=== PATIENT | male | born 1990 ===

== ENCOUNTER 2021-05-20 01:18 | Day surgery (SDC) | payer OTHER ==
[~2021-05-20 01:18] MED LIST: CEFP200 PO; CEFU500T30 PO; CODACE30 PO; PROBIOTIC1 EA13 PO; SULTRIDS PO
== END 2021-05-20 23:07 | disposition home or self-care (01) ==
LOC: WOUND 01:18
DX: L89.013 Pressure ulcer of right elbow, stage 3 (principal); L89.893 Pressure ulcer of other site, stage 3; L89.523 Pressure ulcer of left ankle, stage 3; G82.54 Quadriplegia, C5-C7 incomplete; N39.0 Urinary tract infection, site not specified; Z86.718 Personal history of other venous thrombosis and embolism
CPT/HCPCS: A9270; G0463

== ENCOUNTER 2021-06-03 01:15 | Day surgery (SDC) | payer OTHER | END 2021-06-03 23:35 | disposition home or self-care (01) | LOC: WOUND 01:15 | DX: L89.013 Pressure ulcer of right elbow, stage 3 (principal); L89.893 Pressure ulcer of other site, stage 3; G82.54 Quadriplegia, C5-C7 incomplete | CPT/HCPCS: A9270; G0463 ==

== ENCOUNTER 2021-06-17 00:53 | Day surgery (SDC) | payer OTHER | END 2021-06-17 22:49 | disposition home or self-care (01) | LOC: WOUND 00:53 | DX: L89.013 Pressure ulcer of right elbow, stage 3 (principal); L89.893 Pressure ulcer of other site, stage 3; L89.523 Pressure ulcer of left ankle, stage 3; G82.54 Quadriplegia, C5-C7 incomplete; T22.211A Burn of second degree of right forearm, initial encounter; S91.105A Unspecified open wound of left lesser toe(s) without damage to nail, initial encounter; X08.8XXA Exposure to other specified smoke, fire and flames, initial encounter | CPT/HCPCS: G0463 ==

== ENCOUNTER → 2021-06-30 | Outpatient (CLI) | payer OTHER | END | disposition home or self-care (01) | LOC: LAB SHORT 16:00 → LAB 16:00 | DX: R50.9 Fever, unspecified (principal) | CPT/HCPCS: 87086 ==

== ENCOUNTER 2021-08-12 18:29 | Emergency (ER) | payer OTHER ==
[~2021-08-12] VITALS: Ht 167.6 cm; Wt 86.2 kg
[2021-08-12] MEDS ORDERED: MULVITA PO (19:45)
[2021-08-12] MEDS ORDERED: B-12500 MC2 PO (19:46)
[2021-08-12 20:50] LABS: Source, Urine Foley catheter
[2021-08-12 20:53] LABS: Bilirubin, Urine Neg (Neg); Blood, Urine 3+ (Neg); Glucose Qualitative, Urine Neg (Neg); Ketones, Urine Neg (Neg); Leukocyte Esterase, Urine 3+ (Neg); Nitrite, Urine Neg (Neg); Protein, Urine 3+ (Neg); Urobilinogen, Urine NORM (Normal)
[2021-08-12 21:03] LABS: Appearance, Urine Cloudy (Clear); Color, Urine Yellow (P-Yellow)
[2021-08-12 21:06] LABS: White Blood Cells, Urine TNTC /hpf (0-5)
[2021-08-12 21:07] LABS: Squamous Epithelial Cells Rare /hpf (Few)
[2021-08-12 21:09] LABS: Bacteria Many /hpf; Mucus Light (0-Heavy); Transitional Epithelial Cells Rare /hpf (0-Rare)
[2021-08-12] MEDS ORDERED: CIPR500 PO (21:28)
== END 2021-08-12 22:27 | disposition home or self-care (01) ==
LOC: ER 18:29
PROVIDERS: Physician Assistant
DX: T83.098A Other mechanical complication of other urinary catheter, initial encounter (principal); N39.0 Urinary tract infection, site not specified; M79.601 Pain in right arm; Z88.5 Allergy status to narcotic agent; Z79.899 Other long term (current) drug therapy
CPT/HCPCS: 51702; 81001; 87086; 99283-25; A9270

== ENCOUNTER 2021-10-19 11:35 | Inpatient (IN) | payer OTHER ==
[~2021-10-19] VITALS: Ht 172.7 cm; Wt 90.7 kg
[~2021-10-19 11:35] MED LIST changes: +B-12500 MC2 PO; +CIPR500 PO; +MULVITA PO
[2021-10-19 12:30] LABS: BASOPHILS ABSOLUTE AUTO 0.07 K/mm3 (0.00-0.23); BASOPHILS PERCENT AUTO 1 % (0-2); EOSINOPHILS ABSOLUTE AUTO 0.26 K/mm3 (0.00-0.68); EOSINOPHILS PERCENT AUTO 3 % (0-6); Hemoglobin 11.9 g/dL (13.5-17.5); IMMATURE GRAN ABSOLUTE AUTO 0.03 K/mm3 (0.00-0.10); IMMATURE GRAN PERCENT AUTO 0 % (0-1); LYMPHOCYTES ABSOLUTE AUTO 1.85 K/mm3 (0.84-5.20); LYMPHOCYTES PERCENT AUTO 20 % (21-46); MONOCYTES ABSOLUTE AUTO 0.98 K/mm3 (0.16-1.47); MONOCYTES PERCENT AUTO 11 % (4-13); Mean Corpuscular HGB 23.8 pg (26.0-34.0); Mean Corpuscular HGB Conc 31.3 g/dL (31.5-36.5); Mean Corpuscular Volume 76 fL (80-100); Mean Platelet Volume 9.3 fL (9.1-12.4); NEUTROPHILS ABSOLUTE AUTO 5.92 K/mm3 (1.96-9.15); NEUTROPHILS PERCENT AUTO 65 % (41-73); Platelet Count 497 K/mm3 (150-400); RDW Coefficient Variation 17.4 % (11.7-14.2); RDW Standard Deviation 47.8 fL (35.1-46.3); Red Blood Cell Count 5.01 M/mm3 (4.30-5.90); White Blood Cell Count 9.11 K/mm3 (4.00-11.30)
[2021-10-19 13:02] LABS: Albumin, Blood 3.6 g/dL (3.4-5.0); Albumin/Globulin Ratio 0.6 (0.8-1.8); Bilirubin, Total 0.3 mg/dL (0.1-1.0); Bun/Creatinine Ratio 45.5 (12.0-20.0); Calcium, Blood 9.7 mg/dL (8.5-10.1); Creatinine, Blood 0.48 mg/dL (0.60-1.20); Globulin, Blood 6.1 g/dL (2.2-4.0); Potassium, Blood 3.6 mmol/L (3.5-5.5); Total Protein, Blood 9.7 g/dL (6.4-8.2)
[2021-10-19 14:53] LABS: Source, Urine Foley catheter
[2021-10-19 15:13] LABS: Appearance, Urine Cloudy (Clear); Bilirubin, Urine Neg (Neg); Blood, Urine 4+ (Neg); Color, Urine Yellow (P-Yellow); Glucose Qualitative, Urine Neg (Neg); Ketones, Urine Neg (Neg); Leukocyte Esterase, Urine 3+ (Neg); Nitrite, Urine Neg (Neg); Protein, Urine 2+ (Neg); Urobilinogen, Urine NORM (Normal); pH, Urine 6.5 (5.0-8.0)
[2021-10-19 15:26] LABS: White Blood Cells, Urine 25-50 /hpf (0-5)
[2021-10-19 15:27] LABS: Amorphous Light (0-Heavy); Bacteria Many /hpf; Red Blood Cells, Urine 25-50 /hpf (0-2); Squamous Epithelial Cells Few /hpf (Few)
[2021-10-19 21:54] LABS: Source, Urine Straight Cath
[2021-10-19 22:03] LABS: Appearance, Urine Hazy (Clear); Bilirubin, Urine Neg (Neg); Blood, Urine 3+ (Neg); Glucose Qualitative, Urine Neg (Neg); Ketones, Urine 3+ (Neg); Leukocyte Esterase, Urine 2+ (Neg); Nitrite, Urine Pos (Neg); Protein, Urine 1+ (Neg); Specific Gravity, Urine 1.015 (1.003-1.022); Urobilinogen, Urine NORM (Normal)
[2021-10-19 22:42] LABS: Color, Urine Pale Yellow (P-Yellow)
[2021-10-19 22:44] LABS: Amorphous Light (0-Heavy); Bacteria Many /hpf; Squamous Epithelial Cells Not Seen /hpf (Few)
--- NOTE | 2021-10-20 05:03 | NUR ---
PT ADMIT THIS SHIFT FROM ER, PARAPLEGIC PERSONAL W/C IN ROOM. CHRONIC CANTU REPLACED AND U/A SENT. SEE CHART FOR MULTIPLE WOUND PHOTOS. 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 A/O, PLEASANT. TYLENOL GIVEN FOR DISCOMFORT AND FEVER LIKE SYMPTOMS, SWEATING HEAVILY, LINENS AND GOWN CHANGED. PT SAYS HE IS LIKE THIS NORMALLY AT HOME OFTEN.
[2021-10-20 05:19] LABS: Bun/Creatinine Ratio 33.1 (12.0-20.0); Creatinine, Blood 0.57 mg/dL (0.60-1.20); Potassium, Blood 4.2 mmol/L (3.5-5.5)
--- NOTE | 2021-10-20 17:49 | NUR ---
SHIFT SUMMARY PT REPOSITIONING SELF IN BED. PT COMPLETED CATH CARE INDEPENDENTLY. MOD ASSIST SLIDE TRANSFER TODAY TO HIS WHEELCHAIR AND THEN TO THE TOILET. PT TOLERATED THIS WELL. WOUND TO L POSTERIOR THIGH BANDAGED WITH A FOAM DRESSING. PT PLEASANT & COOPERATIVE T/O SHIFT. DENIES NEEDS AT THIS TIME. NO OTHER ACUTE CHANGES IN ASSESSMENT AT THIS TIME. CALL LIGHT IN REACH.
--- NOTE | 2021-10-21 03:43 | NUR ---
CLOUD ENGAGEMENT PARTNER SUMMARY AWAKE AT HS. TOLERATED HS MEDDS, REFUSED STOOL SOFTENERS. PT IS PARAPLEGIC, STATED HE HAS NO FEELING FORM "CHEST DOWN". ABLE TO USE BILAT UPPER EXT. ABLE TO REPOSITION SELF IN BED BUT REQUIRES ASSIST TO TRANSFER FROM BED TO W/C AND FROM W/C TO TOILET, ETC. HAS BEEN RESTING QUIETLY WITH FEW INTERUPTIONS SINCE HS. CALL LIGHT IN REACH. ISOLATION FOR ESBL/MRSA IN URINE.
[2021-10-21 06:22] LABS: Hematocrit 37.1 % (37.0-53.0); Hemoglobin 11.4 g/dL (13.5-17.5); Mean Corpuscular HGB 23.6 pg (26.0-34.0); Mean Corpuscular HGB Conc 30.7 g/dL (31.5-36.5); Mean Corpuscular Volume 77 fL (80-100); Mean Platelet Volume 9.1 fL (9.1-12.4); Platelet Count 471 K/mm3 (150-400); RDW Coefficient Variation 17.4 % (11.7-14.2); RDW Standard Deviation 48.2 fL (35.1-46.3); Red Blood Cell Count 4.84 M/mm3 (4.30-5.90); White Blood Cell Count 6.48 K/mm3 (4.00-11.30)
--- NOTE | 2021-10-21 06:28 | NUR ---
BP ELEVATED, NO ANTIHYPERTENSIVE ORDERED - CALL PLACED TO MD, AWAITING CALL BACK
[2021-10-21 06:47] LABS: Albumin, Blood 3.1 g/dL (3.4-5.0); Anion Gap 8 mmol/L (6-16); Blood Urea Nitrogen 18 mg/dL (8-24); Bun/Creatinine Ratio 34.3 (12.0-20.0); CO2, Blood 25 mmol/L (21-32); Calcium, Blood 8.9 mg/dL (8.5-10.1); Chloride, Blood 106 mmol/L (98-108); Creatinine, Blood 0.53 mg/dL (0.60-1.20); Glomerular Filtration Rate 139 (60-); Glucose, Blood 97 mg/dL (70-99); Phosphorus, Blood 3.1 mg/dL (2.5-4.9); Potassium, Blood 3.9 mmol/L (3.5-5.5); Sodium, Blood 139 mmol/L (136-145)
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
--- NOTE | 2021-10-22 05:16 | NUR ---
AT START OF SHIFT BP 164/103 HYDRALAZINE PRN X1 GIVEN WITH IMPROVEMENT TO 131/80. PT C/O THAT CANTU DOES NOT FEEL LIKE ITS PLACED IN THE "RIGHT PLACE." REPORTS FEELING PRESSURE AND THE URGE TO URINATE. PT HAS CHRONIC CANTU AND REPORTS HE HAS NEVER FELT LIKE THIS. PT ALSO STATING THAT HE TYPICCALLY USES A 16F CANTU NOT 14F. AT THIS TIME CANTU NOTED TO BE DRAINING TO GRAVITY W/O ISSUE. CNATU EXCHANGED PER PT REQUEST TO 16F COUDE AND WITH 15ML SALINE D/T PT STATING THAT THEY ALWAYS USE MORE THAN 10ML TO INFLATE BALLOON. AFTERWARDS PT REPORTED THAT HE NO LONGER FELT PRESSURE. PT ALSO WITH WOUNDS TO RIGHT TOES AND LEG. VERY HESITANT TO DRINK MATTHEW HOWEVER EDUCATED CONSTANTLY ON NEED TO COMPLY TO HELP WITH WOUND HEALING. PT ALSO ENCOURAGED TO CHANGE POSITION IN BED PT NOTED TO FREQUENTLY LAY IN THE SAME POSITION. PT WITH MINIMAL SLEEP LAST NIGHT. STILL REPORTS DISCOMFORT TO LUE.
[2021-10-22] MEDS ORDERED: JUVEN PACKET1 EAC3 PO (15:54)
[2021-10-22] MEDS ORDERED: DOCU100 PO (15:54)
[2021-10-22] MEDS ORDERED: IBUP400 PO (15:55)
[2021-10-22] MEDS ORDERED: LEVO750 PO (15:55)
[2021-10-22] MEDS ORDERED: VISBIOME 112.51 EACH PO (15:55)
--- NOTE | 2021-10-22 17:31 | NUR ---
DISCHARGE NOTE- PT WAS GIVEN VERBAL AND WRITTEN DISCHARGE INSTRUCTIONS AND MEDS WERE FAXED TO [facility] PER PT REQUEST. IV DC'D PRIOR TO DISCHARGE. PT WAS TAKEN VIA WC TRANSPORT BACK TO HIS HOME. NO S&S OF DISTRESS NOTED AT THE TIME OF DISCHARGE.
== END 2021-10-22 17:28 | disposition home health service (06) | DRG 698 ==
LOC: ER 11:35 → MEDS 21:00
PROVIDERS: Internal Medicine; Physician Assistant; ADMIT Internal Medicine
DX: T83.511A Infection and inflammatory reaction due to indwelling urethral catheter, initial encounter (principal); A41.81 Sepsis due to Enterococcus; G82.20 Paraplegia, unspecified; L03.116 Cellulitis of left lower limb; L97.129 Non-pressure chronic ulcer of left thigh with unspecified severity; L97.329 Non-pressure chronic ulcer of left ankle with unspecified severity; N39.0 Urinary tract infection, site not specified; M79.602 Pain in left arm; M81.0 Age-related osteoporosis without current pathological fracture; Z96.0 Presence of urogenital implants; Z79.899 Other long term (current) drug therapy; Z88.0 Allergy status to penicillin; Z88.5 Allergy status to narcotic agent; Z86.14 Personal history of Methicillin resistant Staphylococcus aureus infection; Z98.890 Other specified postprocedural states; Z86.19 Personal history of other infectious and parasitic diseases; Z99.3 Dependence on wheelchair; Z87.828 Personal history of other (healed) physical injury and trauma; Z88.8 Allergy status to other drugs, medicaments and biological substances
CPT/HCPCS: 36415; 71045; 74177; 80048; 80053; 80069; 81001; 83605; 83690; 85025; 85027; 87040; 87077; 87086; 87186; 96361; 96365-59; 96375; 96376; 97110; 97165; 99285-25; A9270; J0360; J1650; J2185; J2405; J2550; J7030; J7040; Q9967

== ENCOUNTER 2021-11-18 14:56 | Inpatient (IN) | payer OTHER ==
[~2021-11-18] VITALS: Ht 157.5 cm; Wt 88.5 kg
[~2021-11-18 14:56] MED LIST changes: +DOCU100 PO; +IBUP400 PO; +JUVEN PACKET1 EAC3 PO; +LEVO750 PO; +VISBIOME 112.51 EACH PO
[2021-11-18 16:22] LABS: BASOPHILS ABSOLUTE AUTO 0.08 K/mm3 (0.00-0.23); BASOPHILS PERCENT AUTO 1 % (0-2); EOSINOPHILS ABSOLUTE AUTO 0.15 K/mm3 (0.00-0.68); EOSINOPHILS PERCENT AUTO 1 % (0-6); Hematocrit 36.3 % (37.0-53.0); Hemoglobin 11.2 g/dL (13.5-17.5); IMMATURE GRAN ABSOLUTE AUTO 0.06 K/mm3 (0.00-0.10); IMMATURE GRAN PERCENT AUTO 0 % (0-1); LYMPHOCYTES ABSOLUTE AUTO 1.86 K/mm3 (0.84-5.20); LYMPHOCYTES PERCENT AUTO 12 % (21-46); MONOCYTES ABSOLUTE AUTO 1.22 K/mm3 (0.16-1.47); MONOCYTES PERCENT AUTO 8 % (4-13); Mean Corpuscular HGB 23.2 pg (26.0-34.0); Mean Corpuscular HGB Conc 30.9 g/dL (31.5-36.5); Mean Corpuscular Volume 75 fL (80-100); Mean Platelet Volume 9.3 fL (9.1-12.4); NEUTROPHILS ABSOLUTE AUTO 11.68 K/mm3 (1.96-9.15); NEUTROPHILS PERCENT AUTO 78 % (41-73); Platelet Count 504 K/mm3 (150-400); RDW Coefficient Variation 16.8 % (11.7-14.2); RDW Standard Deviation 45.5 fL (35.1-46.3); Red Blood Cell Count 4.82 M/mm3 (4.30-5.90); White Blood Cell Count 15.05 K/mm3 (4.00-11.30)
[2021-11-18 16:40] LABS: Albumin, Blood 3.2 g/dL (3.4-5.0); Albumin/Globulin Ratio 0.5 (0.8-1.8); Bilirubin, Total 0.7 mg/dL (0.1-1.0); Bun/Creatinine Ratio 20.6 (12.0-20.0); Calcium, Blood 9.4 mg/dL (8.5-10.1); Creatinine, Blood 0.53 mg/dL (0.60-1.20); Globulin, Blood 5.9 g/dL (2.2-4.0); Potassium, Blood 3.8 mmol/L (3.5-5.5); Total Protein, Blood 9.1 g/dL (6.4-8.2)
[2021-11-18 19:00] LABS: Source, Urine Clean Catch
[2021-11-18 19:16] LABS: Appearance, Urine Cloudy (Clear); Bilirubin, Urine Neg (Neg); Blood, Urine 5+ (Neg); Color, Urine Amber (P-Yellow); Glucose Qualitative, Urine Neg (Neg); Ketones, Urine 2+ (Neg); Leukocyte Esterase, Urine 3+ (Neg); Nitrite, Urine Neg (Neg); Protein, Urine 4+ (Neg); Urobilinogen, Urine 1+ (Normal)
[2021-11-18 19:23] LABS: Bacteria Mod /hpf; Hyaline Casts 0-2 /lpf (0-2); Mucus Mod (0-Heavy); Red Blood Cells, Urine TNTC /hpf (0-2); Squamous Epithelial Cells Rare /hpf (Few); WBC Cast 0-2 /lpf (0); White Blood Cells, Urine TNTC /hpf (0-5)
--- NOTE | 2021-11-19 04:28 | NUR ---
2305: PT ARRIVED TO ROOM 302. AOX4. TRANSFERED IN THE GURNEY TO BED WITH SLIDER SHEET. PT IS PARAPLEGIC. PT HAS MULTIPLE SKIN EXCORATION ON L UPPER BACK, POSTERIOR LLE (BEHIND L KNEE) AND L FOOT. PT HAD SOME SMALL LIQ STOOL, PT WAS CLEANED AND REPOSITIONED. DENIES PAIN. VSS. REORIENT IN ROOM. CALL LIGHT WITHIN REACH. WILL CONTINUE TO MONITOR.
--- NOTE | 2021-11-19 04:30 | NUR ---
SHIFT SUMMARY NO ACUTE CHANGES SINCE PT CAME IN FROM ER. PT AOX4. PLEASANT AND COOPERATIVE WITH CARE. VSS. DENIES PAIN AT THIS TIME. PARAPLEGIC. LIVES ALONE AT HOME, HAS CAREGIVER THAT COMES IN ONCE A WEEK AND A SISTER THAT HELPS. EXCORATED SKIN ON L SIDE BODY (BACK, LEG AND FOOT) SEE CHART FOR PICTURES. FLUIDS INFUSING X1 BAG FOR 150MLS/HR. ABX, MERREM GIVEN VIA IV AT 0200. TOLERATING PO INTAKE. DENIES N/V. SLEEP GOOD AFTER PT WAS TRANFERED FROM ER. CHRONIC CANTU WAS CHANGED AT ER. STILL INTACT, PATENT, OFF FLOOR AND GRAVITY. URINE APPEARS DARK AND HAVE SOME BLOOD. CALL LIGHT WITHIN REACH. WILL NOTIFY ONCOMING NURSE FOR REPORT.
--- NOTE | 2021-11-19 08:00 | NUR ---
pt laying in bed watching tv, a/ox3, pleasant and cooperative with care, follows commands well, denies pain, lungs are clear t/o, on r/a, resp even and unlabored, no cough noted, hrr, no edema noted, iv site is clear and patnent, btx4, abd flat soft nontender, voids via chronic sims cath, skin has multiple wounds, moves upper ext well, unable to move legs, donato, call light in reach.
[2021-11-19 09:07] LABS: BASOPHILS ABSOLUTE AUTO 0.05 K/mm3 (0.00-0.23); BASOPHILS PERCENT AUTO 1 % (0-2); EOSINOPHILS ABSOLUTE AUTO 0.47 K/mm3 (0.00-0.68); EOSINOPHILS PERCENT AUTO 7 % (0-6); Hematocrit 29.1 % (37.0-53.0); Hemoglobin 9.1 g/dL (13.5-17.5); IMMATURE GRAN ABSOLUTE AUTO 0.03 K/mm3 (0.00-0.10); IMMATURE GRAN PERCENT AUTO 0 % (0-1); LYMPHOCYTES ABSOLUTE AUTO 1.45 K/mm3 (0.84-5.20); LYMPHOCYTES PERCENT AUTO 21 % (21-46); MONOCYTES ABSOLUTE AUTO 0.49 K/mm3 (0.16-1.47); MONOCYTES PERCENT AUTO 7 % (4-13); Mean Corpuscular HGB 23.7 pg (26.0-34.0); Mean Corpuscular HGB Conc 31.3 g/dL (31.5-36.5); Mean Corpuscular Volume 76 fL (80-100); Mean Platelet Volume 9.1 fL (9.1-12.4); NEUTROPHILS ABSOLUTE AUTO 4.43 K/mm3 (1.96-9.15); NEUTROPHILS PERCENT AUTO 64 % (41-73); Platelet Count 380 K/mm3 (150-400); RDW Coefficient Variation 16.5 % (11.7-14.2); RDW Standard Deviation 46.1 fL (35.1-46.3); Red Blood Cell Count 3.84 M/mm3 (4.30-5.90); White Blood Cell Count 6.92 K/mm3 (4.00-11.30)
--- NOTE | 2021-11-19 17:35 | NUR ---
pt iv is stinging, charge is placing a new one, pt had a shower today, all wounds have mepilex placed on them, he is sweating. call light in reach.
--- NOTE | 2021-11-19 18:25 | NUR ---
pt lost his iv, as it was stinging, several attempts nurses looked to place new one, called charge for pcu she is placing one with u/s, pt having muscle spasms, call to Dr. Gloria lei order for flexeril. will give as soon as available, pt sweating a lot, no further changes this shift. call light in reach.
[2021-11-20 05:16] LABS: BASOPHILS ABSOLUTE AUTO 0.07 K/mm3 (0.00-0.23); BASOPHILS PERCENT AUTO 1 % (0-2); EOSINOPHILS ABSOLUTE AUTO 0.48 K/mm3 (0.00-0.68); EOSINOPHILS PERCENT AUTO 7 % (0-6); Hematocrit 29.3 % (37.0-53.0); Hemoglobin 9.2 g/dL (13.5-17.5); IMMATURE GRAN ABSOLUTE AUTO 0.04 K/mm3 (0.00-0.10); IMMATURE GRAN PERCENT AUTO 1 % (0-1); LYMPHOCYTES ABSOLUTE AUTO 1.83 K/mm3 (0.84-5.20); LYMPHOCYTES PERCENT AUTO 25 % (21-46); MONOCYTES ABSOLUTE AUTO 0.78 K/mm3 (0.16-1.47); MONOCYTES PERCENT AUTO 11 % (4-13); Mean Corpuscular HGB 23.5 pg (26.0-34.0); Mean Corpuscular HGB Conc 31.4 g/dL (31.5-36.5); Mean Corpuscular Volume 75 fL (80-100); Mean Platelet Volume 9.7 fL (9.1-12.4); NEUTROPHILS ABSOLUTE AUTO 4.01 K/mm3 (1.96-9.15); NEUTROPHILS PERCENT AUTO 56 % (41-73); Platelet Count 442 K/mm3 (150-400); RDW Coefficient Variation 16.6 % (11.7-14.2); Red Blood Cell Count 3.92 M/mm3 (4.30-5.90); White Blood Cell Count 7.21 K/mm3 (4.00-11.30)
--- NOTE | 2021-11-20 05:29 | NUR ---
ASSSUMED CARE OF PT AT 1900HRS. NO ACUTE CHANGES THIS SHIFT. PT IS A&OX4, ON BEDREST D/T PARAPLEGIA, AND CALL APPROPRIATELY. PLEASANT AND COOPERATIVE WITH CARES, SLEEPS 6 HOURS THIS NIGHT. HAS WOUNDS WITH FOAM DRESSINGS IN PLACE. DENIES PAIN. HAS CHRONIC CANTU. IS ABLE TO MOVE ARMS WELL, UNABLE TO MOVE LEGS. READJUSTED THROUGHOUT THE NIGHT. WILL CONTINUE TO MONITOR THIS PT AND GIVE REPORT TO DAY SHIFT RN.
[2021-11-20 05:48] LABS: Bun/Creatinine Ratio 19.5 (12.0-20.0); Calcium, Blood 8.5 mg/dL (8.5-10.1); Creatinine, Blood 0.51 mg/dL (0.60-1.20); Potassium, Blood 3.3 mmol/L (3.5-5.5)
--- NOTE | 2021-11-20 18:02 | NUR ---
SHIFT SUMMARY PT RESTING QUIETLY AT START OF SHIFT. WOKE EASILY FOR CARE. PT RECEIVING IV ABX FOR UTI R/T CHRONIC CANTU. PT WILL NEED TO D/C TO SNF FOR 14 DAYS OF ABX AND THEN F/U WITH WOUND CLINIC FOR L LEG WOUNDS. PT IS PARAPLEGIC AND SITS IN W/C FOR LONG HOURS HE SAID, CAUSING WOUNDS ON LEGS. A&O, PLEASANT AND CO-OP WITH CARE. TEXT ON PHONE MOST OF THE DAY, WATCHING TV. DENIED FURTHER NEEDS. CALL LT IN REACH.
--- NOTE | 2021-11-21 04:43 | NUR ---
SHIFT SUMMARY - PT'S MAIN COMPLAINT AT THE BEGINNING OF THIS SHIFT, WAS LACK OF SLEEP. PT REPORTS HE WAS ABLE TO GET "INTERMITTENT PERIODS OF SLEEP THROUGHOUT THE NIGHT." NO ACUTE CHANGES THROUGHOUT THIS SHIFT. PT DENIED ANY CHEST PAIN, SOB, NAUSEA, OR HEADACHE TONIGHT. CALL LIGHT WITHIN REACH. BED IN LOW POSITION. FLUIDS AT BEDSIDE. WILL CONTINUE TO MONITOR UNTIL AM SHIFT CHANGE. PT DENIES ANY REQUESTS THIS AM.
--- NOTE | 2021-11-21 16:52 | NUR ---
DAY SHIFT SUMMARY 31 YR OLD MALE WITH SEPSIS. PLAN TO FIND PLACEMENT FOR PT TO RECEIVE IV ABX. POWER GLIDE PLACED FOR EXTENDED ABX. PT IS ON RA AND ABLE TO TAKE MEDS WHOLE. WOUND CONSULT ORDERED FOR WOUNDS TO BACK, BACK OF LT LEG AND RT ANKLE/FOOT FROM WHEELCHAIR USE. PT IS PARALYZED FROM CHEST DOWN. CALL LIGHT WITHIN REACH AND ABLE TO CALL APPROPRIATE.
--- NOTE | 2021-11-22 04:04 | NUR ---
SHIFT SUMMARY A/OX4, W/C BOUND AT BASELINE. CHRONIC INDWELLING CANTU PATENT AND DRAINING. DENIES PAIN OR SOB. SLEPT T/O SHIFT. PG TO BLAYNE. VSS, NO ACUTE CHANGES AT THIS TIME. BED IN LOWEST POSITION WITH CALL LIGHT IN REACH. WILL CONTINUE TO MONITOR AND REPORT TO ONCOMING RN.
[2021-11-22 05:43] LABS: Bun/Creatinine Ratio 21.7 (12.0-20.0); Calcium, Blood 8.8 mg/dL (8.5-10.1); Creatinine, Blood 0.55 mg/dL (0.60-1.20); Potassium, Blood 4.1 mmol/L (3.5-5.5)
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
--- NOTE | 2021-11-23 04:54 | NUR ---
SHIFT SUMMARY A/OX4, W/C BOUND AT BASELINE. SEVERAL ULCERS/CELLULITIS, DRESSINGS C/D/I. PG TO BLAYNE. VSS, NO ACUTE CHANGES AT THIS TIME. BED IN LOWEST POSITION WITH CALL LIGHT IN REACH. WILL CONTINUE TO MONITOR AND REPORT TO ONCOMING RN.
--- NOTE | 2021-11-24 05:25 | NUR ---
SHIFT SUMMARY A/OX4, PARAPLEGIC, W/C BOUND AT BASELINE. C/O GENERALIZED PAIN, MEDICATED WITH OT ORDER OF NORCO. PG TO BLAYNE. VSS, NO ACUTE CHANGES AT THIS TIME. BED IN LOWEST POSITION WITH CALL LIGHT IN REACH. WILL CONTINUE TO MONITOR AND REPORT TO ONCOMING RN.
[2021-11-24] MEDS ORDERED: ACET325 PO (10:56)
[2021-11-24] MEDS ORDERED: BACLOFEN5 M1 PO (10:56)
[2021-11-24] MEDS ORDERED: ASCO500 PO (10:56)
[2021-11-24] MEDS ORDERED: XARELTO2.5 M1 PO (10:57)
[2021-11-24] MEDS ORDERED: FERSU300 PO (10:57)
[2021-11-24] MEDS ORDERED: MERREM1 G3 IV (10:57)
[2021-11-24] MEDS ORDERED: PROM25 PO (10:58)
[2021-11-24 12:36] LABS: SARS-Cov-2 (COVID-19) PCR, MMC NEGATIVE (NEGATIVE)
--- NOTE | 2021-11-24 15:20 | NUR ---
DISCHARGE PATIENT TRANSPORTED IN OWN WHEELCHAIR BY [facility]. DISCHARGE INSTRUCTIONS FAXED TO [facility]. POWERGLIDE TO BLAYNE INTACT AND PATENT AT TIME OF DISCHARGE. DRESSING CHANGED TODAY. BELONGINGS SENT WITH PATIENT. MEDICATIONS FAXED TO [facility]. CANTU PATENT AND DRAINING AT TIME OF DISCHARGE. REPORT GIVEN TO BUSTER CARVALHO NURSE AT [facility].
== END 2021-11-24 15:04 | DRG 698 ==
LOC: ER 14:56 → MEDS 22:37
PROVIDERS: Family Medicine; Internal Medicine; Physician Assistant; ADMIT Internal Medicine
DX: T83.511A Infection and inflammatory reaction due to indwelling urethral catheter, initial encounter (principal); A41.59 Other Gram-negative sepsis; G82.50 Quadriplegia, unspecified; L03.115 Cellulitis of right lower limb; L03.116 Cellulitis of left lower limb; Z16.12 Extended spectrum beta lactamase (ESBL) resistance; N39.0 Urinary tract infection, site not specified; M81.0 Age-related osteoporosis without current pathological fracture; L89.899 Pressure ulcer of other site, unspecified stage; Z20.822 Contact with and (suspected) exposure to COVID-19; Z88.8 Allergy status to other drugs, medicaments and biological substances; Z87.828 Personal history of other (healed) physical injury and trauma; Z88.5 Allergy status to narcotic agent; Z88.0 Allergy status to penicillin; Z79.899 Other long term (current) drug therapy; Z79.2 Long term (current) use of antibiotics; Z98.890 Other specified postprocedural states; Z86.14 Personal history of Methicillin resistant Staphylococcus aureus infection; Z99.3 Dependence on wheelchair
CPT/HCPCS: 36415; 71045; 73701; 80048; 80053; 81001; 82728; 83540; 83550; 83605; 85025; 87040; 87077; 87086; 87186; 93005; 93010; 96365-59; 96366; 96367; 96375; 99285-25; A9270; J0780; J1335; J1650; J1885; J1956; J2185; J2405; J3370; J7030; J7040; J7050; J7060; Q9967; U0004

== ENCOUNTER 2021-12-14 00:29 | Day surgery (SDC) | payer OTHER ==
[~2021-12-14 00:29] MED LIST changes: +ACET325 PO; +ASCO500 PO; +BACLOFEN5 M1 PO; +FERSU300 PO; +MERREM1 G3 IV; +PROM25 PO; +XARELTO2.5 M1 PO
== END 2021-12-15 00:46 | disposition home or self-care (01) ==
LOC: WOUND 00:29
DX: L89.523 Pressure ulcer of left ankle, stage 3 (principal); L89.893 Pressure ulcer of other site, stage 3; L89.890 Pressure ulcer of other site, unstageable; L97.528 Non-pressure chronic ulcer of other part of left foot with other specified severity; G82.54 Quadriplegia, C5-C7 incomplete; Z86.718 Personal history of other venous thrombosis and embolism; Z88.5 Allergy status to narcotic agent; Z88.1 Allergy status to other antibiotic agents; Z88.4 Allergy status to anesthetic agent; Z88.8 Allergy status to other drugs, medicaments and biological substances
CPT/HCPCS: A9270; G0463

== ENCOUNTER 2021-12-21 01:28 | Day surgery (SDC) | payer OTHER | END 2021-12-21 23:17 | disposition home or self-care (01) | LOC: WOUND 01:28 | DX: L89.523 Pressure ulcer of left ankle, stage 3 (principal); L89.893 Pressure ulcer of other site, stage 3; L97.528 Non-pressure chronic ulcer of other part of left foot with other specified severity; G82.54 Quadriplegia, C5-C7 incomplete | CPT/HCPCS: G0463 ==

== ENCOUNTER 2022-01-08 00:14 | Day surgery (SDC) | payer OTHER | END 2022-01-08 23:24 | disposition home or self-care (01) | LOC: WOUND 00:14 | DX: L89.523 Pressure ulcer of left ankle, stage 3 (principal); L89.893 Pressure ulcer of other site, stage 3; L97.523 Non-pressure chronic ulcer of other part of left foot with necrosis of muscle; G82.54 Quadriplegia, C5-C7 incomplete | CPT/HCPCS: A9270; G0463 ==

== ENCOUNTER 2022-01-25 01:44 | Day surgery (SDC) | payer OTHER | END 2022-01-25 22:56 | disposition home or self-care (01) | LOC: WOUND 01:44 | DX: L89.893 Pressure ulcer of other site, stage 3 (principal); N39.0 Urinary tract infection, site not specified; L97.528 Non-pressure chronic ulcer of other part of left foot with other specified severity; G82.54 Quadriplegia, C5-C7 incomplete; L89.523 Pressure ulcer of left ankle, stage 3 | CPT/HCPCS: A9270; G0463 ==

== ENCOUNTER 2022-01-25 14:24 | Emergency (ER) | payer OTHER ==
[~2022-01-25] VITALS: Ht 165.1 cm; Wt 90.7 kg
[2022-01-25 18:49] LABS: Source, Urine Foley catheter
[2022-01-25 19:09] LABS: Appearance, Urine Hazy (Clear); Bilirubin, Urine Neg (Neg); Blood, Urine 5+ (Neg); Color, Urine Yellow (P-Yellow); Glucose Qualitative, Urine Neg (Neg); Ketones, Urine Neg (Neg); Leukocyte Esterase, Urine 3+ (Neg); Nitrite, Urine Pos (Neg); Protein, Urine 2+ (Neg); Urobilinogen, Urine 1+ (Normal)
[2022-01-25 19:28] LABS: White Blood Cells, Urine 50-100 /hpf (0-5)
[2022-01-25 19:29] LABS: Bacteria Many /hpf; Red Blood Cells, Urine 25-50 /hpf (0-2); Squamous Epithelial Cells Few /hpf (Few)
== END 2022-01-25 21:15 | disposition home or self-care (01) ==
LOC: ER 14:24
PROVIDERS: Physician Assistant
DX: T83.098A Other mechanical complication of other urinary catheter, initial encounter (principal); N39.0 Urinary tract infection, site not specified; Z88.8 Allergy status to other drugs, medicaments and biological substances; Z88.5 Allergy status to narcotic agent; Z88.1 Allergy status to other antibiotic agents; Z79.899 Other long term (current) drug therapy
CPT/HCPCS: 51702; 81001; 87077; 87086; 87186; 99283-25; A9270

== ENCOUNTER 2022-03-05 00:43 | Day surgery (SDC) | payer OTHER | END 2022-03-05 23:23 | disposition home or self-care (01) | LOC: WOUND 00:43 | DX: L89.893 Pressure ulcer of other site, stage 3 (principal); L89.523 Pressure ulcer of left ankle, stage 3; L89.892 Pressure ulcer of other site, stage 2; L89.323 Pressure ulcer of left buttock, stage 3; L89.313 Pressure ulcer of right buttock, stage 3; G82.54 Quadriplegia, C5-C7 incomplete; L97.528 Non-pressure chronic ulcer of other part of left foot with other specified severity | CPT/HCPCS: A9270; G0463 ==

== ENCOUNTER 2022-03-12 00:38 | Day surgery (SDC) | payer OTHER | END 2022-03-12 22:51 | disposition home or self-care (01) | LOC: WOUND 00:38 | DX: L89.893 Pressure ulcer of other site, stage 3 (principal); L89.523 Pressure ulcer of left ankle, stage 3; L89.323 Pressure ulcer of left buttock, stage 3; L89.313 Pressure ulcer of right buttock, stage 3; L89.102 Pressure ulcer of unspecified part of back, stage 2; G82.54 Quadriplegia, C5-C7 incomplete; L97.528 Non-pressure chronic ulcer of other part of left foot with other specified severity; Z86.718 Personal history of other venous thrombosis and embolism | CPT/HCPCS: A9270; G0463 ==

== ENCOUNTER 2022-03-24 14:58 | Emergency (ER) | payer OTHER ==
[~2022-03-24] VITALS: Ht 170.2 cm; Wt 90.7 kg
[2022-03-24 19:04] LABS: Source, Urine Foley catheter
[2022-03-24 19:12] LABS: Appearance, Urine Cloudy (Clear); Bilirubin, Urine Neg (Neg); Blood, Urine 3+ (Neg); Color, Urine Yellow (P-Yellow); Glucose Qualitative, Urine Neg (Neg); Ketones, Urine Neg (Neg); Leukocyte Esterase, Urine 3+ (Neg); Nitrite, Urine Pos (Neg); Protein, Urine 2+ (Neg); Specific Gravity, Urine 1.015 (1.003-1.022); Urobilinogen, Urine NORM (Normal)
[2022-03-24 19:21] LABS: White Blood Cells, Urine TNTC /hpf (0-5)
[2022-03-24 19:22] LABS: Bacteria Many /hpf; Squamous Epithelial Cells Rare /hpf (Few)
[2022-03-24 19:23] LABS: Renal Epithelial Mod /hpf (0-Rare)
[2022-03-24] MEDS ORDERED: CIPR500 PO (19:48)
== END 2022-03-24 20:26 | disposition home or self-care (01) ==
LOC: ER 14:58
PROVIDERS: Emergency Medicine
DX: Z46.6 Encounter for fitting and adjustment of urinary device (principal); N39.0 Urinary tract infection, site not specified
CPT/HCPCS: 51702; 81001; A9270

== ENCOUNTER 2022-03-26 02:13 | Day surgery (SDC) | payer OTHER | END 2022-03-26 22:57 | disposition home or self-care (01) | LOC: WOUND 02:13 | DX: L89.893 Pressure ulcer of other site, stage 3 (principal); L89.102 Pressure ulcer of unspecified part of back, stage 2; L89.323 Pressure ulcer of left buttock, stage 3; L89.523 Pressure ulcer of left ankle, stage 3; G82.54 Quadriplegia, C5-C7 incomplete; L89.313 Pressure ulcer of right buttock, stage 3 | CPT/HCPCS: A9270; G0463 ==

== ENCOUNTER 2022-04-02 00:43 | Day surgery (SDC) | payer OTHER | END 2022-04-02 23:09 | disposition home or self-care (01) | LOC: WOUND 00:43 | DX: L89.893 Pressure ulcer of other site, stage 3 (principal); L89.523 Pressure ulcer of left ankle, stage 3; L89.323 Pressure ulcer of left buttock, stage 3; L89.313 Pressure ulcer of right buttock, stage 3; G82.54 Quadriplegia, C5-C7 incomplete; L97.528 Non-pressure chronic ulcer of other part of left foot with other specified severity; L89.102 Pressure ulcer of unspecified part of back, stage 2 | CPT/HCPCS: A9270; G0463 ==

== ENCOUNTER 2022-04-16 01:42 | Day surgery (SDC) | payer OTHER | END 2022-04-17 23:34 | disposition home or self-care (01) | LOC: WOUND 01:42 | DX: L89.893 Pressure ulcer of other site, stage 3 (principal); L89.102 Pressure ulcer of unspecified part of back, stage 2; L89.323 Pressure ulcer of left buttock, stage 3; L89.313 Pressure ulcer of right buttock, stage 3; G82.54 Quadriplegia, C5-C7 incomplete; L89.523 Pressure ulcer of left ankle, stage 3 | CPT/HCPCS: A9270; G0463 ==

== ENCOUNTER → 2022-06-09 | Outpatient (CLI) | payer OTHER ==
[2022-06-09 14:48] LABS: Source, Urine Straight Cath
[2022-06-09 16:27] LABS: Appearance, Urine Cloudy (Clear); Bilirubin, Urine Neg (Neg); Blood, Urine 5+ (Neg); Color, Urine Yellow (P-Yellow); Glucose Qualitative, Urine Neg (Neg); Ketones, Urine Neg (Neg); Leukocyte Esterase, Urine 3+ (Neg); Nitrite, Urine Neg (Neg); Protein, Urine 3+ (Neg); Specific Gravity, Urine 1.015 (1.003-1.022); Urobilinogen, Urine NORM (Normal)
[2022-06-09 16:51] LABS: Calcium Oxalate Crystals Many /hpf; Red Blood Cells, Urine 50-100 /hpf (0-2); White Blood Cells, Urine 25-50 /hpf (0-5)
[2022-06-09 16:53] LABS: Bacteria Few /hpf; Squamous Epithelial Cells Not Seen /hpf (Few)
== END ==
LOC: EDSTATUS 09:53 → LAB RH 13:45
PROVIDERS: Internal Medicine
DX: N39.0 Urinary tract infection, site not specified (principal)
CPT/HCPCS: 81001; 87077; 87086; 87186

== ENCOUNTER → 2022-07-03 | Outpatient (CLI) | payer OTHER ==
[2022-07-03 22:59] LABS: Hematocrit 34.1 % (37.0-53.0); Hemoglobin 10.6 g/dL (13.5-17.5); Mean Corpuscular HGB 23.4 pg (26.0-34.0); Mean Corpuscular HGB Conc 31.1 g/dL (31.5-36.5); Mean Corpuscular Volume 75 fL (80-100); Mean Platelet Volume 10.5 fL (9.1-12.4); Platelet Count 504 K/mm3 (150-400); RDW Coefficient Variation 18.7 % (11.7-14.2); RDW Standard Deviation 50.9 fL (35.1-46.3); Red Blood Cell Count 4.53 M/mm3 (4.30-5.90); White Blood Cell Count 6.23 K/mm3 (4.00-11.30)
[2022-07-03 23:27] LABS: Albumin, Blood 3.2 g/dL (3.4-5.0); Albumin/Globulin Ratio 0.6 (0.8-1.8); Bilirubin, Total 0.1 mg/dL (0.1-1.0); Bun/Creatinine Ratio 31.8 (12.0-20.0); Calcium, Blood 8.2 mg/dL (8.5-10.1); Creatinine, Blood 0.57 mg/dL (0.60-1.20); Globulin, Blood 5.4 g/dL (2.2-4.0); Potassium, Blood 3.2 mmol/L (3.5-5.5); Total Protein, Blood 8.6 g/dL (6.4-8.2)
== END | disposition home or self-care (01) ==
LOC: EDSTATUS 15:03 → LAB RH 22:54
PROVIDERS: Internal Medicine
DX: G82.20 Paraplegia, unspecified (principal); L03.90 Cellulitis, unspecified
CPT/HCPCS: 80053; 85027

== ENCOUNTER → 2022-07-08 | Outpatient (CLI) | payer OTHER ==
[2022-07-08 13:07] LABS: Albumin, Blood 3.6 g/dL (3.4-5.0); Albumin/Globulin Ratio 0.6 (0.8-1.8); Bilirubin, Total 0.4 mg/dL (0.1-1.0); Bun/Creatinine Ratio 35.1 (12.0-20.0); Calcium, Blood 9.2 mg/dL (8.5-10.1); Creatinine, Blood 0.54 mg/dL (0.60-1.20); Globulin, Blood 5.9 g/dL (2.2-4.0); Potassium, Blood 3.9 mmol/L (3.5-5.5); Total Protein, Blood 9.5 g/dL (6.4-8.2)
== END | disposition home or self-care (01) ==
LOC: LAB RH 10:35 → EDSTATUS 15:04
PROVIDERS: Internal Medicine
DX: E87.6 Hypokalemia (principal)
CPT/HCPCS: 80053

== ENCOUNTER → 2022-07-16 | Outpatient (CLI) | payer OTHER ==
[2022-07-16 22:06] LABS: Source, Urine Clean Catch
[2022-07-16 22:09] LABS: Appearance, Urine Clear (Clear); Bilirubin, Urine Neg (Neg); Blood, Urine 3+ (Neg); Color, Urine Yellow (P-Yellow); Glucose Qualitative, Urine Neg (Neg); Ketones, Urine Neg (Neg); Leukocyte Esterase, Urine 1+ (Neg); Nitrite, Urine Pos (Neg); Protein, Urine 2+ (Neg); Specific Gravity, Urine 1.015 (1.003-1.022); Urobilinogen, Urine NORM (Normal)
[2022-07-16 22:15] LABS: Bacteria Many /hpf; Red Blood Cells, Urine 0-2 /hpf (0-2); Squamous Epithelial Cells Not Seen /hpf (Few)
[2022-07-16 22:16] LABS: Amorphous Light (0-Heavy)
== END | disposition home or self-care (01) ==
LOC: LAB SHORT 22:03
PROVIDERS: Internal Medicine
DX: N39.0 Urinary tract infection, site not specified (principal); N31.8 Other neuromuscular dysfunction of bladder; L03.90 Cellulitis, unspecified
CPT/HCPCS: 81001; 87077; 87086; 87186

== ENCOUNTER → 2022-10-05 | Outpatient (CLI) | payer OTHER | END | disposition home or self-care (01) | LOC: LAB 18:00 → LAB SHORT 18:00 | DX: N39.0 Urinary tract infection, site not specified (principal) | CPT/HCPCS: 87086 ==

== ENCOUNTER → 2022-12-07 | Outpatient (CLI) | payer OTHER | END | disposition home or self-care (01) | LOC: LAB 18:00 → LAB SHORT 18:00 | DX: N39.0 Urinary tract infection, site not specified (principal) | CPT/HCPCS: 87077; 87086; 87186 ==

== ENCOUNTER 2023-02-03 18:57 | Emergency (ER) | payer OTHER ==
[~2023-02-03] VITALS: Ht 165.1 cm; Wt 81.7 kg
[2023-02-03 20:36] VITALS: BP 103/60
[2023-02-03] MEDS ORDERED: MELA3 PO (20:38)
[2023-02-03] MEDS ORDERED: MULVITA PO (20:38)
[2023-02-04 00:43] LABS: Source, Urine Foley catheter
[2023-02-04 01:01] LABS: Bilirubin, Urine Neg (Neg); Blood, Urine 4+ (Neg); Glucose Qualitative, Urine Neg (Neg); Ketones, Urine Neg (Neg); Leukocyte Esterase, Urine 3+ (Neg); Nitrite, Urine Pos (Neg); Protein, Urine 3+ (Neg); Urobilinogen, Urine NORM (Normal)
[2023-02-04 01:10] LABS: Appearance, Urine Turbid (Clear); Color, Urine Yellow (P-Yellow)
[2023-02-04 01:11] LABS: Bacteria Many /hpf; Squamous Epithelial Cells Mod /hpf (Few); White Blood Cells, Urine TNTC /hpf (0-5)
[2023-02-04] MEDS ORDERED: LEVO750 PO (01:13)
== END 2023-02-04 02:21 | disposition home or self-care (01) ==
LOC: ER 18:57
PROVIDERS: Physician Assistant
DX: N39.0 Urinary tract infection, site not specified (principal); Z88.5 Allergy status to narcotic agent; Z88.6 Allergy status to analgesic agent; Z79.899 Other long term (current) drug therapy
CPT/HCPCS: 51702; 81001; 87077; 87086; 87186; 99283-25; A9270

== ENCOUNTER → 2023-03-08 | Outpatient (CLI) | payer OTHER ==
[~2023-03-08] MED LIST changes: +MELA3 PO
== END ==
LOC: LAB SHORT 17:39 → LAB 17:39
DX: R82.90 Unspecified abnormal findings in urine (principal)
CPT/HCPCS: 87070; 87077; 87086; 87147; 87186; 87205

== ENCOUNTER 2023-03-16 17:06 | Inpatient (IN) | payer OTHER ==
[~2023-03-16] VITALS: Ht 162.6 cm; Wt 93.4 kg
[2023-03-16 21:52] LABS: Source, Urine Foley catheter
[2023-03-16 22:07] LABS: Bilirubin, Urine Neg (Neg); Blood, Urine 5+ (Neg); Glucose Qualitative, Urine Neg (Neg); Ketones, Urine Neg (Neg); Leukocyte Esterase, Urine 2+ (Neg); Nitrite, Urine Neg (Neg); Protein, Urine 3+ (Neg); Specific Gravity, Urine 1.025 (1.003-1.022); Urobilinogen, Urine NORM (Normal)
[2023-03-16 22:17] LABS: Color, Urine Yellow (P-Yellow)
[2023-03-16 22:18] LABS: Appearance, Urine Hazy (Clear); Bacteria Few /hpf; Red Blood Cells, Urine 50-100 /hpf (0-2); Squamous Epithelial Cells Few /hpf (Few)
[2023-03-16 23:42] LABS: BASOPHILS ABSOLUTE AUTO 0.05 K/mm3 (0.00-0.23); BASOPHILS PERCENT AUTO 1 % (0-2); EOSINOPHILS ABSOLUTE AUTO 0.16 K/mm3 (0.00-0.68); EOSINOPHILS PERCENT AUTO 2 % (0-6); Hematocrit 35.4 % (37.0-53.0); Hemoglobin 11.9 g/dL (13.5-17.5); IMMATURE GRAN ABSOLUTE AUTO 0.06 K/mm3 (0.00-0.10); IMMATURE GRAN PERCENT AUTO 1 % (0-1); LYMPHOCYTES PERCENT AUTO 26 % (21-46); MONOCYTES ABSOLUTE AUTO 1.06 K/mm3 (0.16-1.47); MONOCYTES PERCENT AUTO 11 % (4-13); Mean Corpuscular HGB 28.8 pg (26.0-34.0); Mean Corpuscular HGB Conc 33.6 g/dL (31.5-36.5); Mean Corpuscular Volume 86 fL (80-100); Mean Platelet Volume 9.3 fL (9.1-12.4); NEUTROPHILS ABSOLUTE AUTO 6.17 K/mm3 (1.96-9.15); NEUTROPHILS PERCENT AUTO 61 % (41-73); Platelet Count 588 K/mm3 (150-400); RDW Coefficient Variation 13.4 % (11.7-14.2); RDW Standard Deviation 42.6 fL (35.1-46.3); Red Blood Cell Count 4.13 M/mm3 (4.30-5.90)
[2023-03-17 00:03] LABS: Magnesium, Blood 1.9 mg/dL (1.6-2.4)
[2023-03-17 00:06] LABS: Albumin, Blood 2.8 g/dL (3.4-5.0); Albumin/Globulin Ratio 0.5 (0.8-1.8); Bilirubin, Total 0.2 mg/dL (0.1-1.0); Calcium, Blood 8.8 mg/dL (8.5-10.1); Creatinine, Blood 0.59 mg/dL (0.60-1.20); Globulin, Blood 6.1 g/dL (2.2-4.0); Phosphorus, Blood 3.3 mg/dL (2.5-4.9); Potassium, Blood 3.7 mmol/L (3.5-5.5); Thyroid Stimulating Hormone 0.894 uIU/mL (0.360-4.800); Total Protein, Blood 8.9 g/dL (6.4-8.2)
[2023-03-17 03:59] VITALS: BP 128/82
[2023-03-17] MEDS ORDERED: JUVEN PACKET1 EAC3 PO (04:32)
[2023-03-17] MEDS ORDERED: ASCO500 PO (04:32)
[2023-03-17] MEDS ORDERED: FERSU300 PO (04:33)
[2023-03-17] MEDS ORDERED: BACLOFEN5 M1 PO (04:33)
[2023-03-17] MEDS ORDERED: DOCU100 PO (04:33)
[2023-03-17] MEDS ORDERED: XARELTO20 MG PO (04:34)
[2023-03-17] MEDS ORDERED: PROM25 PO (04:34)
[2023-03-17] MEDS ORDERED: LACT PO (04:34)
[2023-03-17] MEDS ORDERED: [UNRECOGNIZED DRUG - CODE] PO (04:35)
[2023-03-17] MEDS ORDERED: GEMTESA75 MG PO (04:36)
[2023-03-17 04:40] LABS: BASOPHILS ABSOLUTE AUTO 0.04 K/mm3 (0.00-0.23); BASOPHILS PERCENT AUTO 1 % (0-2); EOSINOPHILS ABSOLUTE AUTO 0.16 K/mm3 (0.00-0.68); EOSINOPHILS PERCENT AUTO 2 % (0-6); Hematocrit 33.8 % (37.0-53.0); Hemoglobin 11.1 g/dL (13.5-17.5); IMMATURE GRAN ABSOLUTE AUTO 0.05 K/mm3 (0.00-0.10); IMMATURE GRAN PERCENT AUTO 1 % (0-1); LYMPHOCYTES ABSOLUTE AUTO 2.32 K/mm3 (0.84-5.20); LYMPHOCYTES PERCENT AUTO 30 % (21-46); MONOCYTES ABSOLUTE AUTO 0.83 K/mm3 (0.16-1.47); MONOCYTES PERCENT AUTO 11 % (4-13); Mean Corpuscular HGB 28.4 pg (26.0-34.0); Mean Corpuscular HGB Conc 32.8 g/dL (31.5-36.5); Mean Corpuscular Volume 86 fL (80-100); Mean Platelet Volume 9.3 fL (9.1-12.4); NEUTROPHILS ABSOLUTE AUTO 4.24 K/mm3 (1.96-9.15); NEUTROPHILS PERCENT AUTO 55 % (41-73); Platelet Count 497 K/mm3 (150-400); RDW Coefficient Variation 13.5 % (11.7-14.2); RDW Standard Deviation 42.5 fL (35.1-46.3); Red Blood Cell Count 3.91 M/mm3 (4.30-5.90); White Blood Cell Count 7.64 K/mm3 (4.00-11.30)
--- NOTE | 2023-03-17 05:17 | NUR ---
PATIENT WAS RECEIVED FROM THE ED VIA STRETCHER. PT W/C IS IN ROOM. PATIENT IS ALERT AND ORIENTED. VERY PLEASANT AND COOPERATIVE. PT IS PARAPALEGIC AND HAS OLD SCARS FROM PRESSURE WOUNDS MOSTLY ON THE LEFT SIDE. PT HAS CELLULITIS TO LEFT LOWER LEG, PRESSURE AREA TO INNER LEFT ANKLE. IT APPEARS TO BE FROM HIS RT FOOT RESTING ON HIS LEFT ANKLE. PT HAS AN OLD SHEARING INJURY PLUS SCARING TO UNDERSIDE OF L THIGH. IV FLUIDS ARE RUNNING. TELE WAS PLACED AND PT IS SR AT 98. LUNGS ARE CLEAR. CANTU CATH WAS CHANGED IN THE ED, CLEAR YELLOW URINE IN BAG. PT WAS ORIENTED TO ROOM. NO IGNITION SOURCES. CALL LIGHT IN REACH.
[2023-03-17 05:22] LABS: Albumin, Blood 2.5 g/dL (3.4-5.0); Albumin/Globulin Ratio 0.4 (0.8-1.8); Bilirubin, Total 0.2 mg/dL (0.1-1.0); Bun/Creatinine Ratio 19.1 (12.0-20.0); Calcium, Blood 8.3 mg/dL (8.5-10.1); Creatinine, Blood 0.58 mg/dL (0.60-1.20); Globulin, Blood 5.8 g/dL (2.2-4.0); Potassium, Blood 3.6 mmol/L (3.5-5.5); Total Protein, Blood 8.3 g/dL (6.4-8.2)
[2023-03-17 07:24] VITALS: BP 127/85
[2023-03-17 15:22] VITALS: BP 135/91
--- NOTE | 2023-03-17 18:39 | NUR ---
SHIFT SUMMARY- PT ALERT AND ORIENTED, HAS HAD NO ACUTE CHANGES T/O THE SHIFT. PT HAD THANKSGIVING DINNER PROVIDED FOR HIM BY HIS FAMILY, HE DECLINED DINNER TRAY A RESULT. PT IS SITTING UP IN BED, CALL LIGHT IN REACH NO S&S OF DISTRESS NOTED AT THIS ITME.
[2023-03-17 19:46] VITALS: BP 150/101
--- NOTE | 2023-03-18 04:28 | NUR ---
SHIFT SUMMARY ADMITTED FOR CELLULITIS OF LEFT LEG. CONTACT PRECAUTIONS FOR ESBL IN URINE. FULL CODE. ALSO HAS A UTI. CHRONIC CANTU IN PLACE. PARAPLEGIC, WHEELCHAIR AT BASELINE. IV ANTIB RX ARE SCHEDULED. I DID MEDICATE HIM FOR NAUSEA AND ABDOMINAL PRESSURE THIS SHIFT. ON REGULAR DIET. ON RA. A&O X4. CHRONIC WOUNDS ON LEFT FOOT.
[2023-03-18 07:34] VITALS: BP 172/105
[2023-03-18 15:54] VITALS: BP 144/104
--- NOTE | 2023-03-18 17:12 | NUR ---
SHIFT SUMMARY: NO NEW ACUTE CHANGES IN PATIENT CONDITION THIS SHIFT. PATIENT A/OX4. CALM, PLEASANT AND COOPERATIVE c CARE PROVIDED THIS SHIFT. PATIENT DENIES CP/PRESSURE, SOB. N/V AND GENERALIZED PAIN. Q2 TURN, OPEN SORE TO COCCYX AND L POSTERIOR THIGH MIPELEX DRESSING PLACED. L LEG ELEVATED ON PILLOWS. PATIENT IS EATING AND DRINKING WELL. CHRONIC CANTU, PATENT DRAINING CLEAR YELLOW TO GRAVITY c 2,600 MLS TOTAL URINE OUTPUT THIS SHIFT. PATIENT RECEIVED IV ABX AND SCHEDULED MEDS PER EMAR. PATIENT RECEIVED BEDBATH AND LINEN CHANGED THIS SHIFT. VITAL SIGNS REVIEWED. PIV TO R/L FOREARM SALINE LOCKED. CALL LIGHT IN REACH.
[2023-03-18 20:29] VITALS: BP 156/105
[2023-03-19 04:41] LABS: BASOPHILS ABSOLUTE AUTO 0.08 K/mm3 (0.00-0.23); BASOPHILS PERCENT AUTO 1 % (0-2); EOSINOPHILS ABSOLUTE AUTO 0.19 K/mm3 (0.00-0.68); EOSINOPHILS PERCENT AUTO 2 % (0-6); Hematocrit 34.6 % (37.0-53.0); Hemoglobin 11.4 g/dL (13.5-17.5); IMMATURE GRAN ABSOLUTE AUTO 0.04 K/mm3 (0.00-0.10); IMMATURE GRAN PERCENT AUTO 0 % (0-1); LYMPHOCYTES ABSOLUTE AUTO 2.14 K/mm3 (0.84-5.20); LYMPHOCYTES PERCENT AUTO 24 % (21-46); MONOCYTES ABSOLUTE AUTO 0.95 K/mm3 (0.16-1.47); MONOCYTES PERCENT AUTO 11 % (4-13); Mean Corpuscular HGB 28.6 pg (26.0-34.0); Mean Corpuscular HGB Conc 32.9 g/dL (31.5-36.5); Mean Corpuscular Volume 87 fL (80-100); Mean Platelet Volume 9.1 fL (9.1-12.4); NEUTROPHILS ABSOLUTE AUTO 5.69 K/mm3 (1.96-9.15); NEUTROPHILS PERCENT AUTO 63 % (41-73); Platelet Count 561 K/mm3 (150-400); RDW Coefficient Variation 13.3 % (11.7-14.2); RDW Standard Deviation 42.5 fL (35.1-46.3); Red Blood Cell Count 3.98 M/mm3 (4.30-5.90); White Blood Cell Count 9.09 K/mm3 (4.00-11.30)
[2023-03-19 04:45] VITALS: BP 151/106
[2023-03-19 05:00] LABS: Bun/Creatinine Ratio 19.7 (12.0-20.0); Calcium, Blood 8.7 mg/dL (8.5-10.1); Creatinine, Blood 0.66 mg/dL (0.60-1.20)
--- NOTE | 2023-03-19 05:35 | NUR ---
SHIFT SUMMARY PT IS A&OX4, PLEASANT AND COOPERATIVE WITH ALL CARES. HYPERTENSIVE SYS >150, DYS >100, HR 98-110'S, AFEBRILE, O2 >95% ON RA. COZAAR INCREASED TO BID PER MD ORDER. C/O PAIN ALL OVER D/T MUSCLE SPASMS. TOLERATING A REGULAR DIET WITH A ROBUST APPETITE. CHRONIC CANTU CATHETER DRAINING LARGE AMOUNTS OF CLEAR, LIGHT YELLOW URINE. NO BM THIS SHIFT. X1 ASSIST FROM W/C BACK TO BED. CONTACT PRECAUSTIONS MAINTAINED FOR ESBL. CALL LIGHT WITHIN REACH. FIRE SAFETY CHECKS COMPLETED
[2023-03-19 08:00] VITALS: BP 149/96
[2023-03-19 15:46] VITALS: BP 162/85
[2023-03-19 15:50] VITALS: BP 130/73
--- NOTE | 2023-03-19 16:47 | NUR ---
SHIFT SUMMARY: NO NEW ACUTE CHANGES IN PATIENT CONDITION THIS SHIFT. PATIENT A/OX4, CALM, PLEASANT AND COOPERATIVE c CARE PROVIDED. PATIENT DENIES CP/PRESSURE, SOB, N/V AND GENERALIZED PAIN. AFIBRILE. CHRONIC CANTU, PATENT DRAINING CLEAR YELLOW c 2,850 MLS TOTAL URINE OUTPUT THIS SHIFT. L LEG ELEVATED ON PILLOWS. PATIENT RECEIVED IV ABX ANND SCHEDULED MEDS PER EMAR. VITAL SIGNS REVIEWED. PIV TO R FOREARM SALINE LOCKED. CALL LIGHT IN REACH.
[2023-03-19 19:43] VITALS: BP 147/82
[2023-03-20 04:18] VITALS: BP 118/69
--- NOTE | 2023-03-20 04:46 | NUR ---
SHIFT SUMMARY PT IS A&OX4. NORMOTENSIVE, HR 80'S-100'S, AFEBRILE, O2 SATS >95% ON RA. C/O PAIN ALL OVER R/T MUSCLE SPASMS, MANAGED WITH PRN TYLENOL AND ADVIL. REPLACED PIV TO RIGHT FOREARM. TOLERATING A REGULAR DIET WITH A GOOD APPETITE. CHRONIC CANTU CATHETER DRAINING LARGE AMOUNTS OF LIGHT YELLOW URINE. NO BM THIS SHIFT. X1 ASSIST TO PTS OWN WHEELCHAIR. CONTACT PRECAUTIONS MAINTAINED FOR ESBL IN URINE. BED IN LOWEST POSITION. CALL LIGHT WITHIN REACH. FIRE SAFETY CHECKS COMPLETED
[2023-03-20 06:56] VITALS: BP 128/57
[2023-03-20 17:02] VITALS: BP 102/61
--- NOTE | 2023-03-20 17:40 | NUR ---
SHIFT SUMMARY: NO NEW ACUTE CHANGES IN PATIENT CONDITION THIS SHIFT. PATIENT A/OX4, CALM, PLEASANT AND COOPERATIVE c CARE. USES CALL LIGHT APPROPRIATELY AND ABLE TO MAKE NEEDS KNOWN. AFIBRILE. PATIENT DENIES CP/PRESSURE, SOB, N/V AND DIZZINESS. PATIENT RECEIVED BEDBATH AND LINEN CHANGED TODAY. OPEN SORE TO COCCYX, L THIGH AND L INNER ANKLE CLEANSED c WOUND CLEANSER, PAT DRY c 4X4 GAUZE AND PLACED MIPELEX DRESSING. DEPENDENT EDEMA TO L FOOT AND HAS BEEN ELEVATING ON PILLOWS THIS SHIFT. PATIENT IS EATING AND DRINKING WELL, CHRONIC CANTU, PATENT DRAINING CLEAR YELLOW c 800 MLS TOTAL URINE OUTPUT THIS SHIFT. PATIENT RECEIVED SCHEDULED MEDS PER EMAR. VITAL SIGNS REVIEWED. CALL LIGHT IN REACH.
[2023-03-20 19:26] VITALS: BP 140/109
[2023-03-20 20:11] VITALS: BP 115/69
--- NOTE | 2023-03-21 04:17 | NUR ---
SHIFT SUMMARY PT A&OX4, PLEASANT AND COOPERATIVE WITH CARES. VSS, NO NEW ACUTE CHANGES THIS SHIFT. MINIMIZED WAKENINGS TO ALLOW PT BETTER SLEEP. ADEQUATE URINE OUTPUT VIA CHRONIC CANTU CATHETER. BM X1 THIS SHIFT. X1 ASSIST TO BSC. MEPLEXES TO PT L FOOT, L HIP, AND COCCYX, C/D/I. BED IN LOWEST POSITION. CALL LIGHT WITHIN REACH. FIRE SAFETY CHECKS COMPLETED
[2023-03-21 05:48] VITALS: BP 131/70
[2023-03-21 08:09] VITALS: BP 139/79
[2023-03-21] MEDS ORDERED: LOSARTAN POTAS100 M1 PO (11:34)
[2023-03-21] MEDS ORDERED: CEPH500 PO (11:35)
--- NOTE | 2023-03-21 15:37 | NUR ---
PATIENT DISCHARGED TO HOME VIA [facility]. IV SALINE LOCK REMOVED WITHOUT INCIDENT. VERBALIZED UNDERSTANDING OF D/C INSTRUCTIONS. OFF UNIT VIA HIS OWN W/C AT 1535. NO PERSONAL BELONGINGS LEFT BEHIND IN ROOM.
== END 2023-03-21 15:33 | disposition home or self-care (01) | DRG 872 ==
LOC: ER 17:06 → MEDS 03-17 02:16 → ENPENDDIS 03-21 10:56 → EDPENDDIS 03-21 10:56 → MEDS 03-21 15:33
PROVIDERS: Emergency Medicine; Internal Medicine; Student in an Organized Health Care Education/Training Program; ADMIT Internal Medicine
PROC: 0T9B70Z Drainage of Bladder with Drainage Device, Via Natural or Artificial Opening (ICD-10-PCS; principal; 2023-03-17)
PROC: 3E03329 Introduction of Other Anti-infective into Peripheral Vein, Percutaneous Approach (ICD-10-PCS; 2023-03-17)
DX: A41.9 Sepsis, unspecified organism (principal); L03.116 Cellulitis of left lower limb; G82.20 Paraplegia, unspecified; M86.652 Other chronic osteomyelitis, left thigh; L89.529 Pressure ulcer of left ankle, unspecified stage; M81.0 Age-related osteoporosis without current pathological fracture; E86.0 Dehydration; R82.81 Pyuria; Z88.5 Allergy status to narcotic agent; Z88.1 Allergy status to other antibiotic agents; Z88.8 Allergy status to other drugs, medicaments and biological substances; Z79.2 Long term (current) use of antibiotics; Z79.899 Other long term (current) drug therapy; Z99.3 Dependence on wheelchair; Z86.14 Personal history of Methicillin resistant Staphylococcus aureus infection; Z87.81 Personal history of (healed) traumatic fracture
CPT/HCPCS: 36415; 51702; 73590; 74177; 80048; 80053; 81001; 83605; 83735; 83880; 84100; 84443; 85025; 85651; 86140; 87040; 87086; 93971; 96361; 96365; 96375; 99285-25; A9270; J0690; J0692; J1885; J2405; J7030; J7050; Q9967

== ENCOUNTER 2023-10-26 03:19 | Day surgery (SDC) | payer OTHER ==
[~2023-10-26 03:19] MED LIST changes: +CEPH500 PO; +FOSFOMYCIN TROME3 G2 PO; +GEMTESA75 MG PO; +LACT PO; +LOSARTAN POTAS100 M1 PO; +Oxybutynin Chlo10 MG PO; +XARELTO20 MG PO; +[UNRECOGNIZED DRUG - CODE] PO
== END 2023-10-26 23:05 | disposition home or self-care (01) ==
LOC: WOUND 03:19
DX: L89.893 Pressure ulcer of other site, stage 3 (principal); L97.528 Non-pressure chronic ulcer of other part of left foot with other specified severity; S91.302A Unspecified open wound, left foot, initial encounter; X58.XXXA Exposure to other specified factors, initial encounter; G82.54 Quadriplegia, C5-C7 incomplete; Z88.5 Allergy status to narcotic agent
CPT/HCPCS: A6213; G0463

== ENCOUNTER 2023-11-02 02:28 | Day surgery (SDC) | payer OTHER | END 2023-11-02 22:57 | disposition home or self-care (01) | LOC: WOUND 02:28 | DX: L89.893 Pressure ulcer of other site, stage 3 (principal); S91.302D Unspecified open wound, left foot, subsequent encounter; G82.54 Quadriplegia, C5-C7 incomplete | CPT/HCPCS: A6213; G0463 ==

== ENCOUNTER 2023-11-09 03:24 | Day surgery (SDC) | payer OTHER | END 2023-11-11 22:51 | disposition home or self-care (01) | LOC: WOUND 03:24 | DX: L89.893 Pressure ulcer of other site, stage 3 (principal); G82.54 Quadriplegia, C5-C7 incomplete | CPT/HCPCS: A6213; G0463 ==

== ENCOUNTER 2023-11-16 01:41 | Day surgery (SDC) | payer OTHER | END 2023-11-17 05:19 | disposition home or self-care (01) | LOC: WOUND 01:41 | DX: L89.893 Pressure ulcer of other site, stage 3 (principal); G82.54 Quadriplegia, C5-C7 incomplete; Z86.718 Personal history of other venous thrombosis and embolism | CPT/HCPCS: A6213; G0463 ==

== ENCOUNTER → 2023-11-16 | Outpatient (CLI) | payer OTHER ==
[2023-11-16 19:39] LABS: Adenovirus F 40/41 Not Detected (NOT DETECT); Astrovirus Not Detected (NOT DETECT); Campylobacter Sp Not Detected (NOT DETECT); Cryptosporidium Not Detected (NOT DETECT); Cyclospora Cayetanensis Not Detected (NOT DETECT); E. Coli O157 Not Detected (NOT DETECT); Entamoeba Histolytica Not Detected (NOT DETECT); Enteroaggregative E. coli-EAEC Not Detected (NOT DETECT); Enteropathogenic E. coli-EPEC Not Detected (NOT DETECT); Enterotoxigenic E. coli-ETEC Not Detected (NOT DETECT); Giardia Lamblia Not Detected (NOT DETECT); Norovirus GI/GII Not Detected (NOT DETECT); Plesiomonas Shigelloides Not Detected (NOT DETECT); Rotavirus A Not Detected (NOT DETECT); Salmonella Sp Not Detected (NOT DETECT); Sapovirus Not Detected (NOT DETECT); Shiga Toxin-prod E. coli-STEC Not Detected (NOT DETECT); Shigella/Enteroin E. coli-EIEC Not Detected (NOT DETECT); Vibrio Cholerae Not Detected (NOT DETECT); Vibrio Sp Not Detected (NOT DETECT); Yersinia Enterocolitica Not Detected (NOT DETECT)
== END | disposition home or self-care (01) ==
LOC: LAB SHORT 15:44 → LAB 15:44
PROVIDERS: Internal Medicine
DX: R19.7 Diarrhea, unspecified (principal)
CPT/HCPCS: 87507

== ENCOUNTER 2023-11-25 03:40 | Day surgery (SDC) | payer OTHER | END 2023-11-25 23:03 | disposition home or self-care (01) | LOC: WOUND 03:40 | DX: L89.893 Pressure ulcer of other site, stage 3 (principal); L97.529 Non-pressure chronic ulcer of other part of left foot with unspecified severity; L97.329 Non-pressure chronic ulcer of left ankle with unspecified severity; I87.2 Venous insufficiency (chronic) (peripheral); G82.21 Paraplegia, complete | CPT/HCPCS: A6213; G0463 ==

== ENCOUNTER 2023-12-20 21:58 | Emergency (ER) | payer OTHER ==
[~2023-12-20] VITALS: Ht 165.1 cm; Wt 86.2 kg
[2023-12-20 22:51] LABS: BASOPHILS ABSOLUTE AUTO 0.05 K/mm3 (0.00-0.23); BASOPHILS PERCENT AUTO 0 % (0-2); EOSINOPHILS ABSOLUTE AUTO 0.14 K/mm3 (0.00-0.68); EOSINOPHILS PERCENT AUTO 1 % (0-6); Hematocrit 38.7 % (37.0-53.0); Hemoglobin 12.5 g/dL (13.5-17.5); IMMATURE GRAN ABSOLUTE AUTO 0.07 K/mm3 (0.00-0.10); IMMATURE GRAN PERCENT AUTO 1 % (0-1); LYMPHOCYTES ABSOLUTE AUTO 2.13 K/mm3 (0.84-5.20); LYMPHOCYTES PERCENT AUTO 19 % (21-46); MONOCYTES ABSOLUTE AUTO 0.96 K/mm3 (0.16-1.47); MONOCYTES PERCENT AUTO 9 % (4-13); Mean Corpuscular HGB 25.6 pg (26.0-34.0); Mean Corpuscular HGB Conc 32.3 g/dL (31.5-36.5); Mean Corpuscular Volume 79 fL (80-100); Mean Platelet Volume 9.8 fL (9.1-12.4); NEUTROPHILS ABSOLUTE AUTO 7.96 K/mm3 (1.96-9.15); NEUTROPHILS PERCENT AUTO 71 % (41-73); Platelet Count 494 K/mm3 (150-400); RDW Coefficient Variation 13.7 % (11.7-14.2); RDW Standard Deviation 39.3 fL (35.1-46.3); Red Blood Cell Count 4.89 M/mm3 (4.30-5.90); White Blood Cell Count 11.31 K/mm3 (4.00-11.30)
[2023-12-20 23:05] LABS: Albumin, Blood 3.3 g/dL (3.4-5.0); Albumin/Globulin Ratio 0.6 (0.8-1.8); Bilirubin, Total 0.3 mg/dL (0.1-1.0); Bun/Creatinine Ratio 26.2 (12.0-20.0); Calcium, Blood 8.7 mg/dL (8.5-10.1); Creatinine, Blood 0.61 mg/dL (0.60-1.20); Globulin, Blood 5.7 g/dL (2.2-4.0); Potassium, Blood 4.5 mmol/L (3.5-5.5)
[2023-12-20 23:39] LABS: Source, Urine Foley catheter
[2023-12-20 23:47] LABS: Appearance, Urine Cloudy (Clear); Bilirubin, Urine Neg (Neg); Blood, Urine 5+ (Neg); Color, Urine Yellow (P-Yellow); Glucose Qualitative, Urine Neg (Neg); Ketones, Urine Neg (Neg); Leukocyte Esterase, Urine 3+ (Neg); Nitrite, Urine Neg (Neg); Protein, Urine 3+ (Neg); Specific Gravity, Urine 1.025 (1.003-1.022); Urobilinogen, Urine NORM (Normal)
[2023-12-20 23:54] LABS: Red Blood Cells, Urine 50-100 /hpf (0-2)
[2023-12-20 23:56] LABS: Bacteria Many /hpf; Squamous Epithelial Cells Few /hpf (Few); White Blood Cells, Urine 50-100 /hpf (0-5)
[2023-12-21] MEDS ORDERED: Ertapenem Sodium 1,000 MG in NS 50 ML IV ONE (00:20)
[2023-12-21] MEDS ORDERED: CIPR500 PO (00:34)
[2023-12-21] MEDS ORDERED: Ciprofloxacin 500 MG Tab PO ONE (00:35)
[2023-12-21 01:21] VITALS: BP 125/85
[2023-12-22] MEDS ORDERED: SOLI5 PO (14:17)
== END 2023-12-21 01:20 | disposition home or self-care (01) ==
LOC: ER 21:58
PROVIDERS: Student in an Organized Health Care Education/Training Program
DX: T83.098A Other mechanical complication of other urinary catheter, initial encounter (principal); N30.00 Acute cystitis without hematuria; Z16.12 Extended spectrum beta lactamase (ESBL) resistance; Z79.899 Other long term (current) drug therapy; Z88.5 Allergy status to narcotic agent; Z88.1 Allergy status to other antibiotic agents; Z88.8 Allergy status to other drugs, medicaments and biological substances
CPT/HCPCS: 51705; 80053; 81001; 85025; 87086; 96365-59; 99283-25; A9270; C2627; J1335

== ENCOUNTER 2023-12-22 02:19 | Day surgery (SDC) | payer OTHER ==
[2023-12-22] MEDS ORDERED: SOLI5 PO (14:17)
== END 2023-12-22 22:51 | disposition home or self-care (01) ==
LOC: WOUND 02:19
DX: L89.893 Pressure ulcer of other site, stage 3 (principal); S91.302A Unspecified open wound, left foot, initial encounter; S91.002A Unspecified open wound, left ankle, initial encounter; G82.54 Quadriplegia, C5-C7 incomplete; Z86.718 Personal history of other venous thrombosis and embolism
CPT/HCPCS: A6213; G0463

== ENCOUNTER 2023-12-22 02:40 | Day surgery (SDC) | payer OTHER ==
[~2023-12-22 02:40] MED LIST changes: +Ertapenem Sodium 1,000 MG in NS 50 ML IV SCH
[2023-12-22] MEDS ORDERED: SOLI5 PO (14:17)
[2023-12-22 14:21] VITALS: BP 155/98
== END 2023-12-22 14:56 | disposition home or self-care (01) ==
LOC: ATC 02:40
DX: N30.00 Acute cystitis without hematuria (principal); G82.20 Paraplegia, unspecified; Z16.12 Extended spectrum beta lactamase (ESBL) resistance; Z88.8 Allergy status to other drugs, medicaments and biological substances; Z88.5 Allergy status to narcotic agent; Z88.1 Allergy status to other antibiotic agents; Z96.0 Presence of urogenital implants
CPT/HCPCS: 96365; J1335

== ENCOUNTER 2023-12-23 01:07 | Day surgery (SDC) | payer OTHER ==
[~2023-12-23 01:07] MED LIST changes: +SOLI5 PO
[2023-12-23 15:18] VITALS: BP 148/85
== END 2023-12-23 15:32 | disposition home or self-care (01) ==
LOC: ATC 01:07
DX: N30.00 Acute cystitis without hematuria (principal); Z16.12 Extended spectrum beta lactamase (ESBL) resistance; Z88.0 Allergy status to penicillin; Z88.5 Allergy status to narcotic agent; Z88.8 Allergy status to other drugs, medicaments and biological substances
CPT/HCPCS: 96365; J1335

== ENCOUNTER 2023-12-24 02:07 | Day surgery (SDC) | payer OTHER ==
[2023-12-24 15:28] VITALS: BP 128/87
== END 2023-12-24 15:54 | disposition home or self-care (01) ==
LOC: ATC 02:07
DX: N30.00 Acute cystitis without hematuria (principal); Z16.12 Extended spectrum beta lactamase (ESBL) resistance; Z88.5 Allergy status to narcotic agent; Z88.1 Allergy status to other antibiotic agents; Z79.01 Long term (current) use of anticoagulants; Z79.899 Other long term (current) drug therapy
CPT/HCPCS: 96365; J1335

== ENCOUNTER 2023-12-25 14:54 | Day surgery (SDC) | payer OTHER | END 2023-12-25 15:45 | disposition home or self-care (01) | LOC: ATC 14:54 | DX: N30.00 Acute cystitis without hematuria (principal); Z16.12 Extended spectrum beta lactamase (ESBL) resistance; Z88.5 Allergy status to narcotic agent; Z88.1 Allergy status to other antibiotic agents; Z88.8 Allergy status to other drugs, medicaments and biological substances; Z79.01 Long term (current) use of anticoagulants; Z79.899 Other long term (current) drug therapy | CPT/HCPCS: 96365; J1335 ==

== ENCOUNTER 2024-01-02 02:04 | Day surgery (SDC) | payer OTHER ==
[~2024-01-02 02:04] MED LIST changes: -Ertapenem Sodium 1,000 MG in NS 50 ML IV SCH
== END 2024-01-02 23:00 | disposition home or self-care (01) ==
LOC: WOUND 02:04
DX: L89.893 Pressure ulcer of other site, stage 3 (principal); S91.302A Unspecified open wound, left foot, initial encounter; S91.002A Unspecified open wound, left ankle, initial encounter; X58.XXXA Exposure to other specified factors, initial encounter; Y93.89 Activity, other specified; G82.54 Quadriplegia, C5-C7 incomplete
CPT/HCPCS: A6213; G0463

== ENCOUNTER 2024-01-16 04:05 | Day surgery (SDC) | payer OTHER | END 2024-01-16 23:00 | LOC: WOUND 04:05 | DX: L89.893 Pressure ulcer of other site, stage 3 (principal); L89.523 Pressure ulcer of left ankle, stage 3; S91.302D Unspecified open wound, left foot, subsequent encounter; S91.002D Unspecified open wound, left ankle, subsequent encounter; G82.54 Quadriplegia, C5-C7 incomplete; X58.XXXD Exposure to other specified factors, subsequent encounter | CPT/HCPCS: A6213; G0463 ==

== ENCOUNTER 2024-01-23 04:44 | Day surgery (SDC) | payer OTHER | END 2024-01-24 23:08 | disposition home or self-care (01) | LOC: WOUND 04:44 | DX: L89.893 Pressure ulcer of other site, stage 3 (principal); S91.002D Unspecified open wound, left ankle, subsequent encounter; S91.302D Unspecified open wound, left foot, subsequent encounter; L89.523 Pressure ulcer of left ankle, stage 3; G82.54 Quadriplegia, C5-C7 incomplete; X58.XXXD Exposure to other specified factors, subsequent encounter | CPT/HCPCS: A6213; G0463 ==

== ENCOUNTER 2024-01-30 01:48 | Day surgery (SDC) | payer OTHER | END 2024-01-30 23:00 | disposition home or self-care (01) | LOC: WOUND 01:48 | DX: L89.893 Pressure ulcer of other site, stage 3 (principal); L89.523 Pressure ulcer of left ankle, stage 3; S91.302A Unspecified open wound, left foot, initial encounter; X58.XXXA Exposure to other specified factors, initial encounter; G82.54 Quadriplegia, C5-C7 incomplete | CPT/HCPCS: A6213; G0463 ==

== ENCOUNTER 2024-02-13 02:55 | Day surgery (SDC) | payer OTHER | END 2024-02-13 23:00 | disposition home or self-care (01) | LOC: WOUND 02:55 | DX: L89.893 Pressure ulcer of other site, stage 3 (principal); S91.302D Unspecified open wound, left foot, subsequent encounter; S91.002D Unspecified open wound, left ankle, subsequent encounter; L89.523 Pressure ulcer of left ankle, stage 3; G82.54 Quadriplegia, C5-C7 incomplete; X58.XXXD Exposure to other specified factors, subsequent encounter | CPT/HCPCS: A6196; A6213; G0463 ==

== ENCOUNTER 2024-03-05 03:57 | Day surgery (SDC) | payer OTHER | END 2024-03-05 23:00 | disposition home or self-care (01) | LOC: WOUND 03:57 | DX: S91.302D Unspecified open wound, left foot, subsequent encounter (principal); S91.002D Unspecified open wound, left ankle, subsequent encounter; L89.523 Pressure ulcer of left ankle, stage 3; L89.893 Pressure ulcer of other site, stage 3; G82.54 Quadriplegia, C5-C7 incomplete; X58.XXXD Exposure to other specified factors, subsequent encounter | CPT/HCPCS: A6213; G0463 ==

== ENCOUNTER 2024-05-12 10:36 | Inpatient (IN) | payer OTHER ==
[~2024-05-12] VITALS: Ht 165.1 cm; Wt 101.0 kg
[2024-05-12 11:37] LABS: CORONAVIRUS COVID-19 AG Negative (NEGATIVE); INFLUENZA A AG Negative (NEGATIVE); INFLUENZA B AG Negative (NEGATIVE)
[2024-05-12 11:39] LABS: BASOPHILS ABSOLUTE AUTO 0.07 K/mm3 (0.00-0.23); BASOPHILS PERCENT AUTO 0 % (0-2); EOSINOPHILS ABSOLUTE AUTO 0.01 K/mm3 (0.00-0.68); EOSINOPHILS PERCENT AUTO 0 % (0-6); Hematocrit 36.7 % (37.0-53.0); Hemoglobin 12.1 g/dL (13.5-17.5); IMMATURE GRAN ABSOLUTE AUTO 0.12 K/mm3 (0.00-0.10); IMMATURE GRAN PERCENT AUTO 1 % (0-1); LYMPHOCYTES ABSOLUTE AUTO 1.38 K/mm3 (0.84-5.20); LYMPHOCYTES PERCENT AUTO 7 % (21-46); MONOCYTES ABSOLUTE AUTO 1.31 K/mm3 (0.16-1.47); MONOCYTES PERCENT AUTO 7 % (4-13); Mean Corpuscular HGB 26.5 pg (26.0-34.0); Mean Corpuscular Volume 80 fL (80-100); Mean Platelet Volume 9.1 fL (9.1-12.4); NEUTROPHILS ABSOLUTE AUTO 15.99 K/mm3 (1.96-9.15); NEUTROPHILS PERCENT AUTO 85 % (41-73); Platelet Count 441 K/mm3 (150-400); RDW Coefficient Variation 13.2 % (11.7-14.2); RDW Standard Deviation 38.3 fL (35.1-46.3); Red Blood Cell Count 4.57 M/mm3 (4.30-5.90); White Blood Cell Count 18.88 K/mm3 (4.00-11.30)
[2024-05-12 11:51] LABS: Albumin, Blood 3.4 g/dL (3.4-5.0); Albumin/Globulin Ratio 0.6 (0.8-1.8); Bilirubin, Total 0.7 mg/dL (0.1-1.0); Calcium, Blood 8.8 mg/dL (8.5-10.1); Creatinine, Blood 0.73 mg/dL (0.60-1.20); Potassium, Blood 3.4 mmol/L (3.5-5.5); Total Protein, Blood 9.4 g/dL (6.4-8.2)
[2024-05-12] MEDS ORDERED: Mag Hydrox/AL Hydrox/Simeth 30 ML UDC PO ONE (16:20)
[2024-05-12] MEDS ORDERED: Pantoprazole Sodium 40 MG Injection IV ONE (16:20)
[2024-05-12] MEDS ORDERED: Lidocaine 2% Viscous Soln 15 ML UDC PO ONE (16:20)
[2024-05-12] MEDS ORDERED: CefTRIAXone Sodium 1,000 MG in NS 100 ML IV ONE (16:20)
[2024-05-12] MEDS ORDERED: Vancomycin HCL 2,000 MG in NS 500 ML IV ONE (16:25)
[2024-05-12 17:04] LABS: Source, Urine Suprapubic Cath
[2024-05-12 17:07] LABS: Appearance, Urine Cloudy (Clear); Bilirubin, Urine Neg (Neg); Blood, Urine 5+ (Neg); Color, Urine Red (P-Yellow); Glucose Qualitative, Urine Neg (Neg); Ketones, Urine 1+ (Neg); Leukocyte Esterase, Urine 3+ (Neg); Nitrite, Urine Neg (Neg); Protein, Urine 4+ (Neg); Specific Gravity, Urine 1.025 (1.003-1.022); Urobilinogen, Urine NORM (Normal)
[2024-05-12 17:18] LABS: Bacteria Many /hpf; Red Blood Cells, Urine TNTC /hpf (0-2); Squamous Epithelial Cells Not Seen /hpf (Few); White Blood Cells, Urine 25-50 /hpf (0-5)
[2024-05-12] MEDS ORDERED: NS 1,000 ML IV SCH (17:20)
[2024-05-12] MEDS ORDERED: FLU VACC TS2024-25(6MOS UP)/PF 45 MCG/0.5 ML SYRINGE IM ONE (18:00)
[2024-05-12] MEDS ORDERED: Enoxaparin 40 MG/0.4 ML SYR SC SCH (18:00)
[2024-05-12] MEDS ORDERED: Ondansetron HCl 2 MG / ML 2ML Vial IV PRN (18:00)
[2024-05-12] MEDS ORDERED: NS 1,000 ML IV ONE (18:10)
[2024-05-12] MEDS ORDERED: Meropenem 1,000 MG in NS 100 ML IV ONE (18:10)
[2024-05-12] MEDS ORDERED: Potassium Chloride 40 MEQ in NS 250 ML IV ONE (18:10)
[2024-05-13] MEDS ORDERED: Meropenem 1,000 MG in NS 100 ML IV SCH (01:00)
[2024-05-13 05:42] LABS: BASOPHILS ABSOLUTE AUTO 0.05 K/mm3 (0.00-0.23); BASOPHILS PERCENT AUTO 0 % (0-2); EOSINOPHILS ABSOLUTE AUTO 0.08 K/mm3 (0.00-0.68); EOSINOPHILS PERCENT AUTO 1 % (0-6); Hematocrit 29.2 % (37.0-53.0); Hemoglobin 9.4 g/dL (13.5-17.5); IMMATURE GRAN ABSOLUTE AUTO 0.05 K/mm3 (0.00-0.10); IMMATURE GRAN PERCENT AUTO 0 % (0-1); LYMPHOCYTES ABSOLUTE AUTO 1.44 K/mm3 (0.84-5.20); LYMPHOCYTES PERCENT AUTO 13 % (21-46); MONOCYTES PERCENT AUTO 7 % (4-13); Mean Corpuscular HGB 26.5 pg (26.0-34.0); Mean Corpuscular HGB Conc 32.2 g/dL (31.5-36.5); Mean Corpuscular Volume 82 fL (80-100); Mean Platelet Volume 9.3 fL (9.1-12.4); NEUTROPHILS ABSOLUTE AUTO 8.72 K/mm3 (1.96-9.15); NEUTROPHILS PERCENT AUTO 78 % (41-73); Platelet Count 345 K/mm3 (150-400); RDW Coefficient Variation 13.2 % (11.7-14.2); RDW Standard Deviation 40.1 fL (35.1-46.3); Red Blood Cell Count 3.55 M/mm3 (4.30-5.90); White Blood Cell Count 11.14 K/mm3 (4.00-11.30)
[2024-05-13 06:22] LABS: Albumin, Blood 2.5 g/dL (3.4-5.0); Albumin/Globulin Ratio 0.5 (0.8-1.8); Bilirubin, Total 0.4 mg/dL (0.1-1.0); Bun/Creatinine Ratio 16.1 (12.0-20.0); Calcium, Blood 8.4 mg/dL (8.5-10.1); Creatinine, Blood 0.56 mg/dL (0.60-1.20); Potassium, Blood 3.5 mmol/L (3.5-5.5); Total Protein, Blood 7.5 g/dL (6.4-8.2)
[2024-05-13] MEDS ORDERED: Vancomycin HCL 1,500 MG in NS 250 ML IV SCH (09:00)
[2024-05-13] MEDS ORDERED: Misc. Tablet PO SCH (09:00)
[2024-05-13 12:08] VITALS: BP 138/67
[2024-05-13] MEDS ORDERED: Acetaminophen 325 MG TABLET PO PRN (12:30)
[2024-05-13] MEDS ORDERED: NS 250 ML IV PRN (14:10)
[2024-05-13 16:21] VITALS: BP 152/79
--- NOTE | 2024-05-13 17:54 | NUR ---
DAY SHIFT SUMMARY: PATIENT ADMIT FROM ED THIS SHIFT. PT A&O X4; CALM AND COOEPRATIVE WITH CARE. NO C/O PAIN OR NAUSEA THIS SHIFT; MEDICATED FOR FEVER PER EMAR. WOUNDS X3; PICS IN CHART. TELE IN PLACE; ST @ 119 PER PHYSIOGNOMIST UPON PLACEMENT OF TELE. CHRONIC SUPRAPUBIC CATHETER; CHANGED IN ED PRIOR TO ADMISSION TO MEDICAL FLOOR. IV ABX CONTINUING. REPROT GIVEN TO DEAN KLEIN.
[2024-05-13 19:54] VITALS: BP 134/77
[2024-05-14 02:14] VITALS: BP 175/105
--- NOTE | 2024-05-14 07:44 | NUR ---
ASSUMED CARE OF PATIENT. SLEEPING DURING SHIFT-CHANGE REPORT.
[2024-05-14 07:54] VITALS: BP 186/106
[2024-05-14] MEDS ORDERED: HydrALAZINE HCl 20 MG / ML 1ML Vial IV PRN (08:15)
[2024-05-14 08:34] VITALS: BP 172/103
[2024-05-14 08:39] LABS: Vancomycin, Trough 11.3 ug/mL (5.0-10.0)
[2024-05-14 08:40] LABS: Bun/Creatinine Ratio 24.8 (12.0-20.0); Calcium, Blood 8.3 mg/dL (8.5-10.1); Creatinine, Blood 0.44 mg/dL (0.60-1.20); Potassium, Blood 3.3 mmol/L (3.5-5.5)
[2024-05-14] MEDS ORDERED: Vancomycin HCL 1,250 MG in NS 250 ML IV SCH (09:00)
[2024-05-14 09:27] LABS: BASOPHILS ABSOLUTE AUTO 0.07 K/mm3 (0.00-0.23); BASOPHILS PERCENT AUTO 1 % (0-2); EOSINOPHILS ABSOLUTE AUTO 0.18 K/mm3 (0.00-0.68); EOSINOPHILS PERCENT AUTO 2 % (0-6); Hematocrit 32.7 % (37.0-53.0); Hemoglobin 10.6 g/dL (13.5-17.5); IMMATURE GRAN ABSOLUTE AUTO 0.06 K/mm3 (0.00-0.10); IMMATURE GRAN PERCENT AUTO 1 % (0-1); LYMPHOCYTES ABSOLUTE AUTO 1.65 K/mm3 (0.84-5.20); LYMPHOCYTES PERCENT AUTO 21 % (21-46); MONOCYTES ABSOLUTE AUTO 0.79 K/mm3 (0.16-1.47); MONOCYTES PERCENT AUTO 10 % (4-13); Mean Corpuscular HGB 26.6 pg (26.0-34.0); Mean Corpuscular HGB Conc 32.4 g/dL (31.5-36.5); Mean Corpuscular Volume 82 fL (80-100); Mean Platelet Volume 9.2 fL (9.1-12.4); NEUTROPHILS PERCENT AUTO 65 % (41-73); Platelet Count 368 K/mm3 (150-400); RDW Coefficient Variation 13.5 % (11.7-14.2); RDW Standard Deviation 40.3 fL (35.1-46.3); Red Blood Cell Count 3.99 M/mm3 (4.30-5.90); White Blood Cell Count 7.95 K/mm3 (4.00-11.30)
[2024-05-14 10:47] VITALS: BP 156/92
[2024-05-14] MEDS ORDERED: Potassium Chloride 10 Meq Tablet SA PO ONE (13:25)
--- NOTE | 2024-05-14 13:33 | NUR ---
CALL TO [facility] AND SPOKE WITH MAYA TO OBTAIN CURRENT WOUND CARE ORDERS: LEFT POSTERIOR THIGH: AQUACEL AND OPTIFOAM LEFT LATERAL ANKLE: METAHONEY ALGINATE AND COVER. LEFT GREAT TOE: AQUACEL AND OPTIFOAM.
[2024-05-14 15:47] VITALS: BP 149/92
--- NOTE | 2024-05-14 20:03 | NUR ---
END OF SHIFT SUMMARY: A&Ox4. PLEASANT AND COOPERATIVE WITH CARE. CALLS APPROPRIATELY AND IS ABLE TO ADVOCATE NEEDS EFFECTIVELY. CONTINENT/INCONTINENT OF BOWEL; BM TODAY. CHRONIC SUPRAPUBIC CATH. BEDBOUND SECONDARY TO PARAPLEGIA.ABLE TO SLIDE TRANSFER TO WHEELCHAIR, TO TOILET AND BACK WITH SBA. WOUND CARE ORDERS OBTAINED FROM [facility] AND PUT INTO CHART PER DR DOS SANTOS. WOUND CARE APPLIED. CONTINUES WITH IV ABx. BED IN LOWEST POSITION, CALL LIGHT WITHIN REACH, ALL NEEDS MET. REPORT TO ONCOMING NURSE.
[2024-05-14] MEDS ORDERED: Lactobacil 2-S.Thermo-Bifido 1 1 Cap PO SCH (21:00)
[2024-05-15 03:06] VITALS: BP 192/113
[2024-05-15 04:54] VITALS: BP 140/72
--- NOTE | 2024-05-15 05:04 | NUR ---
SHIFT SUMMARY; PATIENT SLEPT IN SHORT INTERVALS, GIVEN PRN APRESOLINE X 1. 2 DOSES [address]. TE[address] 109 WITH A BBB. REMAINS IN CONTACT ISLOTION FOR ESBL IN URINE.
[2024-05-15 08:08] VITALS: BP 167/95
[2024-05-15 08:34] LABS: BASOPHILS ABSOLUTE AUTO 0.06 K/mm3 (0.00-0.23); BASOPHILS PERCENT AUTO 1 % (0-2); EOSINOPHILS ABSOLUTE AUTO 0.15 K/mm3 (0.00-0.68); EOSINOPHILS PERCENT AUTO 2 % (0-6); Hematocrit 30.7 % (37.0-53.0); Hemoglobin 10.1 g/dL (13.5-17.5); IMMATURE GRAN ABSOLUTE AUTO 0.04 K/mm3 (0.00-0.10); IMMATURE GRAN PERCENT AUTO 1 % (0-1); LYMPHOCYTES ABSOLUTE AUTO 1.63 K/mm3 (0.84-5.20); LYMPHOCYTES PERCENT AUTO 21 % (21-46); MONOCYTES ABSOLUTE AUTO 0.97 K/mm3 (0.16-1.47); MONOCYTES PERCENT AUTO 13 % (4-13); Mean Corpuscular HGB 26.3 pg (26.0-34.0); Mean Corpuscular HGB Conc 32.9 g/dL (31.5-36.5); Mean Corpuscular Volume 80 fL (80-100); Mean Platelet Volume 9.3 fL (9.1-12.4); NEUTROPHILS ABSOLUTE AUTO 4.92 K/mm3 (1.96-9.15); NEUTROPHILS PERCENT AUTO 63 % (41-73); Platelet Count 393 K/mm3 (150-400); RDW Coefficient Variation 13.4 % (11.7-14.2); Red Blood Cell Count 3.84 M/mm3 (4.30-5.90); White Blood Cell Count 7.77 K/mm3 (4.00-11.30)
[2024-05-15 08:56] LABS: Bun/Creatinine Ratio 18.9 (12.0-20.0); Calcium, Blood 8.2 mg/dL (8.5-10.1); Creatinine, Blood 0.42 mg/dL (0.60-1.20); Potassium, Blood 3.1 mmol/L (3.5-5.5)
[2024-05-15 09:01] LABS: Vancomycin, Trough 21.8 ug/mL (5.0-10.0)
[2024-05-15] MEDS ORDERED: Potassium Chloride 10 Meq Tablet SA PO ONE (09:05)
[2024-05-15] MEDS ORDERED: CefTRIAXone Sodium 1,000 MG in NS 100 ML IV SCH (09:30)
[2024-05-15] MEDS ORDERED: Lisinopril 10 MG Tab PO SCH (10:00)
--- NOTE | 2024-05-15 19:41 | NUR ---
PT PLEASANT TODAY A/O X3, DISCUSSED SWOLLEN SCROTAL WITH DR DOS SANTOS. ORDERS PLACED. PT REQUEST SHOWER TODAY. NEEDS LARGER SHOWER CHAIR, AIDE HAS ATTEMPTED TO FIND. SHE REQUESTING FROM SHAFT MECHANIC ASSISTANCE TO LOCATE. ABX GIVEN PRESCRIBED. NO OTHER NEW CONCERNS NOTED. BED IN LOW POSITIOIN, CALL LITE IN REACH, CALLS APPROP
[2024-05-15 21:15] VITALS: BP 150/91
[2024-05-16 01:44] VITALS: BP 167/94
--- NOTE | 2024-05-16 04:36 | NUR ---
SHIFT SUMMARY: PT IS ALERT AND ORIENTED. PT IS A ONE PERSON ASSIST TO TRANSFER TO W/C. BANDAGES ON WOUNDS OFF AT THE START OF SHIFT, REPLACED WITH XEROFORM AND MEPILEX. TELE OFF AT START OF SHIFT, PT STATES HE NO LONGER WANTS TO WEAR IT, SENT BACK TO PCU AND ORDER DC'D. PT REPORTS HE FEELS LIKE HE MAY TO SPIKING A FEVER, REQUESTS TYLENOL, GIVEN, REMAINS AFEBRILE. SP CATH PATENT AND DRAINING YELLOW URINE. NO ACUTE CHANGES OR COMPLICATIONS OVERNIGHT. BED IN LOW POSITION, CALL LIGHT WITHIN REACH. WILL REPORT TO DAY NURSE.
[2024-05-16 05:25] LABS: BASOPHILS ABSOLUTE AUTO 0.07 K/mm3 (0.00-0.23); BASOPHILS PERCENT AUTO 1 % (0-2); EOSINOPHILS PERCENT AUTO 3 % (0-6); Hemoglobin 10.5 g/dL (13.5-17.5); IMMATURE GRAN ABSOLUTE AUTO 0.07 K/mm3 (0.00-0.10); IMMATURE GRAN PERCENT AUTO 1 % (0-1); LYMPHOCYTES ABSOLUTE AUTO 1.81 K/mm3 (0.84-5.20); LYMPHOCYTES PERCENT AUTO 26 % (21-46); MONOCYTES ABSOLUTE AUTO 0.98 K/mm3 (0.16-1.47); MONOCYTES PERCENT AUTO 14 % (4-13); Mean Corpuscular HGB 26.5 pg (26.0-34.0); Mean Corpuscular HGB Conc 32.8 g/dL (31.5-36.5); Mean Corpuscular Volume 81 fL (80-100); Mean Platelet Volume 8.9 fL (9.1-12.4); NEUTROPHILS ABSOLUTE AUTO 3.93 K/mm3 (1.96-9.15); NEUTROPHILS PERCENT AUTO 56 % (41-73); Platelet Count 369 K/mm3 (150-400); RDW Coefficient Variation 13.6 % (11.7-14.2); RDW Standard Deviation 40.1 fL (35.1-46.3); Red Blood Cell Count 3.96 M/mm3 (4.30-5.90); White Blood Cell Count 7.06 K/mm3 (4.00-11.30)
[2024-05-16 05:50] LABS: Bun/Creatinine Ratio 19.9 (12.0-20.0); Calcium, Blood 8.6 mg/dL (8.5-10.1); Creatinine, Blood 0.45 mg/dL (0.60-1.20); Potassium, Blood 3.8 mmol/L (3.5-5.5)
[2024-05-16 08:28] VITALS: BP 144/89
--- NOTE | 2024-05-16 13:59 | NUR ---
WOUND DRESSING CHANGES PERFORMED.
--- NOTE | 2024-05-16 14:02 | NUR ---
1300 PT SWEATING, COOL TO TOUCH. TEMP ORAL 97.7, STATES SOME PAIN DURING DSG CHANGES, BUT DID WELL. CALLED DR DOS SANTOS, NO NEW ORDERS. GAVE TYLENOL FOR PAIN.
[2024-05-16 17:44] VITALS: BP 149/97
--- NOTE | 2024-05-16 18:46 | NUR ---
PT PLEASANT TODAY. PERORMED WOUND CHANGES THIS DAY. PT GOT SHAKEY AND COLD SWEATS. RESOLVED WITH TYLENOL. NO TEMP. DISCUSSED WITH DR DOS SANTOS. NO NEW ORDERS. PT UP AND CLEANED KUP SELF IN BATHROOM TODAY. VSS. NO OTHER NEW CONCERNS NOTED. BED IN LOW POSITION, CALL LITE IN REACH, CALLS APROP
[2024-05-16 19:59] VITALS: BP 148/85
[2024-05-16] MEDS ORDERED: Arginine/Glutamine/Calcium Hmb 1 Packet PO SCH (21:00)
[2024-05-17 04:38] VITALS: BP 153/96
[2024-05-17 05:30] LABS: BASOPHILS ABSOLUTE AUTO 0.09 K/mm3 (0.00-0.23); BASOPHILS PERCENT AUTO 1 % (0-2); EOSINOPHILS ABSOLUTE AUTO 0.21 K/mm3 (0.00-0.68); EOSINOPHILS PERCENT AUTO 3 % (0-6); Hematocrit 32.7 % (37.0-53.0); Hemoglobin 10.5 g/dL (13.5-17.5); IMMATURE GRAN ABSOLUTE AUTO 0.11 K/mm3 (0.00-0.10); IMMATURE GRAN PERCENT AUTO 2 % (0-1); LYMPHOCYTES ABSOLUTE AUTO 2.63 K/mm3 (0.84-5.20); LYMPHOCYTES PERCENT AUTO 38 % (21-46); MONOCYTES ABSOLUTE AUTO 0.84 K/mm3 (0.16-1.47); MONOCYTES PERCENT AUTO 12 % (4-13); Mean Corpuscular HGB 26.6 pg (26.0-34.0); Mean Corpuscular HGB Conc 32.1 g/dL (31.5-36.5); Mean Corpuscular Volume 83 fL (80-100); NEUTROPHILS ABSOLUTE AUTO 2.99 K/mm3 (1.96-9.15); NEUTROPHILS PERCENT AUTO 44 % (41-73); Platelet Count 429 K/mm3 (150-400); RDW Coefficient Variation 13.5 % (11.7-14.2); Red Blood Cell Count 3.95 M/mm3 (4.30-5.90); White Blood Cell Count 6.87 K/mm3 (4.00-11.30)
[2024-05-17 05:46] LABS: Bun/Creatinine Ratio 25.5 (12.0-20.0); Calcium, Blood 9.1 mg/dL (8.5-10.1); Creatinine, Blood 0.67 mg/dL (0.60-1.20); Potassium, Blood 3.9 mmol/L (3.5-5.5)
--- NOTE | 2024-05-17 06:31 | NUR ---
SHIFT SUMMARY PT ALERT AND ORIENTED TIMES 4. PT IS ABLE TO MAKE NEEDS KNOWN TO STAFF. PT DOES OWN CATH CARE. PT IS POLITE AND SOCIAL WITH STAFF. IV IN RIGHT FOREARM, FLUSHES WELL. PT APPEARED TO SLEEP THROUGH THE NIGHT WITHOUT ISSUES. BED IN LOW POSITION, CALL LIGHT WITHIN REACH, RAILS TIMES 2.
[2024-05-17 08:13] VITALS: BP 124/77
[2024-05-17 08:16] VITALS: BP 110/70
[2024-05-17] MEDS ORDERED: CEPH500 PO (14:01)
[2024-05-17] MEDS ORDERED: ONDA4ODT MM (14:02)
[2024-05-17] MEDS ORDERED: PROBIOTIC1 EA13 PO (14:04)
--- NOTE | 2024-05-17 14:40 | NUR ---
DISCHARGE NOTE PATIENT DISCHARGE PACKET AND EDUCATION WENT OVER AND SIGNED BY BREAK NURSE. DENTAL HYGENIST REGERALL SENT WITH PATIENT. WOUND CARE DRESSING ORDERS SENT WITH PATIENT. WOUND CARE SUPPLIES THAT WERE IN ROOM SENT WITH PATIENT. BELONGINGS GATHERED AND RETURNED. IV REMOVED AND INTACT. FAMILY MEMBER PICKED UP PATIENT.
--- NOTE | 2024-05-17 14:42 | NUR ---
DRESSINGS TO LEFT UPPER THIGH AND LAEFT ANKLE WERE CHANGED PRIOR TO DISCHARGE PER ORDERS.
== END 2024-05-17 14:37 | disposition home health service (06) | DRG 698 ==
LOC: ER 10:36 → ERHOLD 10:37 → MEDS 05-13 11:49
PROVIDERS: Family Medicine; Physician Assistant; ADMIT Internal Medicine
PROC: 3E03329 Introduction of Other Anti-infective into Peripheral Vein, Percutaneous Approach (ICD-10-PCS; principal; 2024-05-12)
PROC: 0T2BX0Z Change Drainage Device in Bladder, External Approach (ICD-10-PCS; 2024-05-12)
DX: T83.510A Infection and inflammatory reaction due to cystostomy catheter, initial encounter (principal); A41.9 Sepsis, unspecified organism; N39.0 Urinary tract infection, site not specified; G82.20 Paraplegia, unspecified; L97.329 Non-pressure chronic ulcer of left ankle with unspecified severity; N49.2 Inflammatory disorders of scrotum; E87.6 Hypokalemia; M81.0 Age-related osteoporosis without current pathological fracture; Z88.8 Allergy status to other drugs, medicaments and biological substances; Z88.0 Allergy status to penicillin; Z79.899 Other long term (current) drug therapy
CPT/HCPCS: 36415; 51705; 71045; 73701; 76870; 80048; 80053; 80202; 81001; 83605; 83735; 83880; 85025; 87040; 87077; 87086; 87147; 87186; 87428-QW; 93005; 93010; 96365-59; 96367-59; 96375-59; 99285-25; A9270; C2627; J0360; J0696; J1650; J2185; J2405; J2470; J3370; J3480; J7030; J7040; J7050; Q9967

== ENCOUNTER → 2024-07-23 | Outpatient (CLI) | payer OTHER ==
[~2024-07-23] MED LIST changes: +ONDA4ODT MM
[2024-07-23 12:29] LABS: Source, Urine Foley catheter
[2024-07-23 14:03] LABS: Appearance, Urine Hazy (Clear); Bilirubin, Urine Neg (Neg); Blood, Urine 5+ (Neg); Color, Urine Yellow (P-Yellow); Glucose Qualitative, Urine Neg (Neg); Ketones, Urine Neg (Neg); Leukocyte Esterase, Urine 3+ (Neg); Nitrite, Urine Neg (Neg); Protein, Urine 4+ (Neg); Specific Gravity, Urine 1.015 (1.003-1.022); Urobilinogen, Urine NORM (Normal); pH, Urine 6.5 (5.0-8.0)
[2024-07-23 14:10] LABS: Amorphous Light (0-Heavy); Bacteria Many /hpf; Granular Casts 0-2 /lpf (0); Squamous Epithelial Cells Rare /hpf (Few)
== END | disposition home or self-care (01) ==
LOC: LAB 10:45 → LAB SHORT 10:45
PROVIDERS: Family Medicine
DX: L08.9 Local infection of the skin and subcutaneous tissue, unspecified (principal); M01.X71 Direct infection of right ankle and foot in infectious and parasitic diseases classified elsewhere; N39.0 Urinary tract infection, site not specified
CPT/HCPCS: 81001; 87070; 87075; 87077; 87086; 87147; 87186; 87205

== ENCOUNTER → 2024-09-12 | Outpatient (CLI) | payer OTHER ==
[2024-09-12 14:42] LABS: Source, Urine Straight Cath
[2024-09-12 15:38] LABS: Appearance, Urine Turbid (Clear); Bilirubin, Urine Neg (Neg); Blood, Urine 5+ (Neg); Color, Urine Amber (P-Yellow); Glucose Qualitative, Urine Neg (Neg); Ketones, Urine Neg (Neg); Leukocyte Esterase, Urine 3+ (Neg); Nitrite, Urine Neg (Neg); Protein, Urine 3+ (Neg); Specific Gravity, Urine 1.015 (1.003-1.022); Urobilinogen, Urine NORM (Normal); pH, Urine 6.5 (5.0-8.0)
[2024-09-12 16:12] LABS: Red Blood Cells, Urine TNTC /hpf (0-2); White Blood Cells, Urine TNTC /hpf (0-5)
[2024-09-12 16:14] LABS: Bacteria Many /hpf; Squamous Epithelial Cells Few /hpf (Few)
== END ==
LOC: LAB 14:10 → LAB SHORT 14:10
PROVIDERS: Urology
DX: N39.0 Urinary tract infection, site not specified (principal)
CPT/HCPCS: 81001; 87077; 87086; 87186

== ENCOUNTER → 2025-01-01 | Outpatient (CLI) | payer OTHER ==
[~2025-01-01] MED LIST changes: +BACL10 PO; +CEFAZOLIN SODIUM IV; +ELIQUIS5 M2 PO; +FAMO20 PO; +Flonase 0.05% N16 GM; +INLYTA5 MG PO; +LORA10ER PO; +Tessalon200 MG PO; +ZINC220 PO
[2025-01-01 15:33] LABS: Bilirubin, Urine Neg (Neg); Color, Urine Yellow (P-Yellow); Glucose Qualitative, Urine Neg (Neg); Ketones, Urine 1+ (Neg); Leukocyte Esterase, Urine 3+ (Neg); Protein, Urine 3+ (Neg); Specific Gravity, Urine 1.010 (1.003-1.022); Urobilinogen, Urine NORM (Normal)
[2025-01-01 16:40] LABS: White Blood Cells, Urine TNTC /hpf (0-5)
== END ==
LOC: LAB 13:53 → LAB SHORT 13:53
PROVIDERS: Family Medicine
DX: Z46.6 Encounter for fitting and adjustment of urinary device (principal); L89.529 Pressure ulcer of left ankle, unspecified stage
CPT/HCPCS: 81001; 87086

== ENCOUNTER 2025-01-03 14:20 | Inpatient (IN) | payer OTHER ==
[~2025-01-03] VITALS: Ht 162.6 cm; Wt 95.1 kg
[~2025-01-03 14:20] MED LIST changes: -BACL10 PO; -CEFAZOLIN SODIUM IV; -ELIQUIS5 M2 PO; -FAMO20 PO; -Flonase 0.05% N16 GM; -INLYTA5 MG PO; -LORA10ER PO; -Tessalon200 MG PO; -ZINC220 PO
[2025-01-03 15:46] LABS: BASOPHILS ABSOLUTE AUTO 0.04 K/mm3 (0.00-0.23); BASOPHILS PERCENT AUTO 0 % (0-2); EOSINOPHILS ABSOLUTE AUTO 0.05 K/mm3 (0.00-0.68); EOSINOPHILS PERCENT AUTO 0 % (0-6); Hematocrit 34.9 % (37.0-53.0); Hemoglobin 11.6 g/dL (13.5-17.5); IMMATURE GRAN ABSOLUTE AUTO 0.11 K/mm3 (0.00-0.10); IMMATURE GRAN PERCENT AUTO 1 % (0-1); LYMPHOCYTES ABSOLUTE AUTO 1.38 K/mm3 (0.84-5.20); LYMPHOCYTES PERCENT AUTO 10 % (21-46); MONOCYTES ABSOLUTE AUTO 0.95 K/mm3 (0.16-1.47); MONOCYTES PERCENT AUTO 7 % (4-13); Mean Corpuscular HGB Conc 33.2 g/dL (31.5-36.5); Mean Corpuscular Volume 78 fL (80-100); NEUTROPHILS ABSOLUTE AUTO 11.59 K/mm3 (1.96-9.15); NEUTROPHILS PERCENT AUTO 82 % (41-73); NRBC ABSOLUTE 0.00 K/mm3 (0.00-0.02); NRBC Auto 0.0 /100 WBC (0.0-0.2); Platelet Count 470 K/mm3 (150-400); RDW Coefficient Variation 14.2 % (11.7-14.2); RDW Standard Deviation 40.2 fL (35.1-46.3)
[2025-01-03 16:19] LABS: Alanine Aminotransfer (ALT/SGP 31.0 U/L (12-78); Albumin, Blood 2.9 g/dL (3.4-5.0); Albumin/Globulin Ratio 0.4 (0.8-1.8); Anion Gap 8.0 mmol/L (3-11); Aspartate Aminotrans (AST/SGOT 39.0 U/L (12-37); Bilirubin, Total 0.4 mg/dL (0.1-1.0); Blood Urea Nitrogen 15.0 mg/dL (8-24); CO2, Blood 26.0 mmol/L (21-32); Calcium, Blood 8.8 mg/dL (8.5-10.1); Chloride, Blood 99.0 mmol/L (98-108); Creatinine, Blood 1.03 mg/dL (0.60-1.20); Globulin, Blood 6.5 g/dL (2.2-4.0); Glucose, Blood 132.0 mg/dL (70-99); Potassium, Blood 2.8 mmol/L (3.5-5.5); Sodium, Blood 130.0 mmol/L (136-145); Total Protein, Blood 9.4 g/dL (6.4-8.2)
[2025-01-03] MEDS ORDERED: CefTRIAXone Sodium 2,000 MG in NS 100 ML IV ONE (17:10)
[2025-01-03] MEDS ORDERED: VANCOMYCIN HCL IV ONE (17:10)
[2025-01-03] MEDS ORDERED: NS IV ONE (17:10)
[2025-01-03] MEDS ORDERED: Ondansetron HCl 2 MG / ML 2ML Vial IV ONE (17:15)
[2025-01-03] MEDS ORDERED: LevoFLOXacin 750 MG/D5W 150ML 150 ML IV ONE (17:20)
[2025-01-03 18:36] LABS: Magnesium, Blood 2.1 mg/dL (1.6-2.4)
[2025-01-03 18:43] LABS: C-REACTIVE PROTEIN, EXT RANGE >19.000 mg/dL (0.000-0.300); Phosphorus, Blood 3.5 mg/dL (2.5-4.9)
[2025-01-03 18:55] LABS: Influenza A, PCR NEGATIVE (NEGATIVE); Influenza B, PCR NEGATIVE (NEGATIVE); Resp Syncytial Virus, PCR NEGATIVE (NEGATIVE); SARS-Cov-2 (COVID-19) PCR, MMC NEGATIVE (NEGATIVE)
[2025-01-03 19:00] LABS: Prothrombin Time Results 11.9 Sec (9.7-11.5)
[2025-01-03] MEDS ORDERED: Metoclopramide HCl 5MG / ML 2ML Vial IV ONE (20:25)
[2025-01-03 20:44] LABS: Source, Urine Suprapubic Cath
[2025-01-03 20:53] LABS: Bilirubin, Urine Neg (Neg); Color, Urine Amber (P-Yellow); Glucose Qualitative, Urine Neg (Neg); Ketones, Urine Neg (Neg); Leukocyte Esterase, Urine 3+ (Neg); Protein, Urine 3+ (Neg); Specific Gravity, Urine 1.010 (1.003-1.022); Urobilinogen, Urine NORM (Normal)
[2025-01-03 21:05] LABS: Red Blood Cells, Urine 25-50 /hpf (0-2); White Blood Cells, Urine 50-100 /hpf (0-5)
[2025-01-03] MEDS ORDERED: Vancomycin (Pharmacy Consult) IV SCH (21:45)
[2025-01-04 08:31] LABS: BASOPHILS ABSOLUTE AUTO 0.03 K/mm3 (0.00-0.23); BASOPHILS PERCENT AUTO 0 % (0-2); EOSINOPHILS ABSOLUTE AUTO 0.01 K/mm3 (0.00-0.68); EOSINOPHILS PERCENT AUTO 0 % (0-6); Hematocrit 27.7 % (37.0-53.0); Hemoglobin 9.3 g/dL (13.5-17.5); IMMATURE GRAN ABSOLUTE AUTO 0.04 K/mm3 (0.00-0.10); IMMATURE GRAN PERCENT AUTO 0 % (0-1); LYMPHOCYTES ABSOLUTE AUTO 1.51 K/mm3 (0.84-5.20); LYMPHOCYTES PERCENT AUTO 16 % (21-46); MONOCYTES ABSOLUTE AUTO 0.91 K/mm3 (0.16-1.47); MONOCYTES PERCENT AUTO 10 % (4-13); Mean Corpuscular HGB Conc 33.6 g/dL (31.5-36.5); Mean Corpuscular Volume 77 fL (80-100); NEUTROPHILS ABSOLUTE AUTO 7.11 K/mm3 (1.96-9.15); NEUTROPHILS PERCENT AUTO 74 % (41-73); NRBC ABSOLUTE 0.00 K/mm3 (0.00-0.02); NRBC Auto 0.0 /100 WBC (0.0-0.2); Platelet Count 404 K/mm3 (150-400); RDW Coefficient Variation 14.5 % (11.7-14.2); RDW Standard Deviation 40.7 fL (35.1-46.3)
[2025-01-04 08:41] LABS: pH Blood Venous 7.47 (7.34-7.37)
[2025-01-04 08:52] LABS: Alanine Aminotransfer (ALT/SGP 24.0 U/L (12-78); Albumin, Blood 2.2 g/dL (3.4-5.0); Albumin/Globulin Ratio 0.4 (0.8-1.8); Anion Gap 8.0 mmol/L (3-11); Aspartate Aminotrans (AST/SGOT 31.0 U/L (12-37); Bilirubin, Total 0.4 mg/dL (0.1-1.0); Blood Urea Nitrogen 11.0 mg/dL (8-24); CO2, Blood 25.0 mmol/L (21-32); Calcium, Blood 7.8 mg/dL (8.5-10.1); Chloride, Blood 105.0 mmol/L (98-108); Creatinine, Blood 0.74 mg/dL (0.60-1.20); Globulin, Blood 5.2 g/dL (2.2-4.0); Glucose, Blood 112.0 mg/dL (70-99); Potassium, Blood 3.0 mmol/L (3.5-5.5); Sodium, Blood 135.0 mmol/L (136-145); Total Protein, Blood 7.4 g/dL (6.4-8.2)
[2025-01-04] MEDS ORDERED: Enoxaparin 40 MG/0.4 ML SYR SC SCH (09:00)
[2025-01-04] MEDS ORDERED: Lactobacil 2-S.Thermo-Bifido 1 1 Cap PO SCH (09:00)
[2025-01-04 12:13] VITALS: BP 141/77
[2025-01-04] MEDS ORDERED: Potassium Chl 20MEQ/Water100ML 100 ML IV STA (12:28)
[2025-01-04] MEDS ORDERED: NS 250 ML IV PRN (12:50)
[2025-01-04] MEDS ORDERED: Enoxaparin 100 MG/ML 1ML SYR SC SCH (15:00)
[2025-01-04 19:36] VITALS: BP 137/83
[2025-01-04 22:51] VITALS: BP 152/85
[2025-01-05] MEDS ORDERED: FentaNYL Citrate 50 MCG/ML 2 ML Injection IV PRN (00:45)
[2025-01-05 01:27] VITALS: BP 165/101
[2025-01-05 04:21] VITALS: BP 119/74
[2025-01-05 04:49] LABS: BASOPHILS ABSOLUTE AUTO 0.07 K/mm3 (0.00-0.23); BASOPHILS PERCENT AUTO 1 % (0-2); EOSINOPHILS ABSOLUTE AUTO 0.02 K/mm3 (0.00-0.68); EOSINOPHILS PERCENT AUTO 0 % (0-6); Hematocrit 26.0 % (37.0-53.0); Hemoglobin 8.5 g/dL (13.5-17.5); IMMATURE GRAN ABSOLUTE AUTO 0.07 K/mm3 (0.00-0.10); IMMATURE GRAN PERCENT AUTO 1 % (0-1); LYMPHOCYTES ABSOLUTE AUTO 2.14 K/mm3 (0.84-5.20); LYMPHOCYTES PERCENT AUTO 18 % (21-46); MONOCYTES ABSOLUTE AUTO 1.27 K/mm3 (0.16-1.47); MONOCYTES PERCENT AUTO 11 % (4-13); Mean Corpuscular HGB Conc 32.7 g/dL (31.5-36.5); Mean Corpuscular Volume 78 fL (80-100); NEUTROPHILS ABSOLUTE AUTO 8.11 K/mm3 (1.96-9.15); NEUTROPHILS PERCENT AUTO 69 % (41-73); NRBC ABSOLUTE 0.00 K/mm3 (0.00-0.02); NRBC Auto 0.0 /100 WBC (0.0-0.2); Platelet Count 372 K/mm3 (150-400); RDW Coefficient Variation 14.8 % (11.7-14.2); RDW Standard Deviation 42.6 fL (35.1-46.3)
[2025-01-05 05:13] LABS: Alanine Aminotransfer (ALT/SGP 23 U/L (12-78); Albumin, Blood 2.0 g/dL (3.4-5.0); Albumin/Globulin Ratio 0.4 (0.8-1.8); Anion Gap 7 mmol/L (3-11); Aspartate Aminotrans (AST/SGOT 22 U/L (12-37); Bilirubin, Total 0.3 mg/dL (0.1-1.0); Blood Urea Nitrogen 8 mg/dL (8-24); CO2, Blood 26 mmol/L (21-32); Calcium, Blood 7.4 mg/dL (8.5-10.1); Chloride, Blood 105 mmol/L (98-108); Creatinine, Blood 0.58 mg/dL (0.60-1.20); Globulin, Blood 4.9 g/dL (2.2-4.0); Glucose, Blood 93 mg/dL (70-99); Potassium, Blood 3.2 mmol/L (3.5-5.5); Sodium, Blood 135 mmol/L (136-145); Total Protein, Blood 6.9 g/dL (6.4-8.2); Vancomycin, Trough 18.4 ug/mL (5.0-10.0)
[2025-01-05 05:56] VITALS: BP 141/86
[2025-01-05 07:03] VITALS: BP 101/58
[2025-01-05] MEDS ORDERED: Albuterol 2.5 MG/3 ML VIAL INH PRN (17:00)
[2025-01-05] MEDS ORDERED: CefTRIAXone Sodium 1,000 MG in NS 100 ML IV SCH (17:07)
[2025-01-06 01:52] VITALS: BP 139/75
[2025-01-06 04:07] VITALS: BP 150/94
[2025-01-06 06:19] LABS: BASOPHILS ABSOLUTE AUTO 0.05 K/mm3 (0.00-0.23); BASOPHILS PERCENT AUTO 0 % (0-2); EOSINOPHILS ABSOLUTE AUTO 0.04 K/mm3 (0.00-0.68); EOSINOPHILS PERCENT AUTO 0 % (0-6); Hematocrit 26.6 % (37.0-53.0); Hemoglobin 8.6 g/dL (13.5-17.5); IMMATURE GRAN ABSOLUTE AUTO 0.19 K/mm3 (0.00-0.10); IMMATURE GRAN PERCENT AUTO 2 % (0-1); LYMPHOCYTES ABSOLUTE AUTO 2.36 K/mm3 (0.84-5.20); LYMPHOCYTES PERCENT AUTO 19 % (21-46); MONOCYTES ABSOLUTE AUTO 1.19 K/mm3 (0.16-1.47); MONOCYTES PERCENT AUTO 10 % (4-13); Mean Corpuscular HGB Conc 32.3 g/dL (31.5-36.5); Mean Corpuscular Volume 80 fL (80-100); NEUTROPHILS ABSOLUTE AUTO 8.48 K/mm3 (1.96-9.15); NEUTROPHILS PERCENT AUTO 69 % (41-73); NRBC ABSOLUTE 0.00 K/mm3 (0.00-0.02); NRBC Auto 0.0 /100 WBC (0.0-0.2); Platelet Count 402 K/mm3 (150-400); RDW Coefficient Variation 15.0 % (11.7-14.2); RDW Standard Deviation 43.6 fL (35.1-46.3)
[2025-01-06 06:40] LABS: Anion Gap 9.0 mmol/L (3-11); Blood Urea Nitrogen 5.0 mg/dL (8-24); CO2, Blood 25.0 mmol/L (21-32); Calcium, Blood 7.6 mg/dL (8.5-10.1); Chloride, Blood 103.0 mmol/L (98-108); Creatinine, Blood 0.66 mg/dL (0.60-1.20); Glucose, Blood 120.0 mg/dL (70-99); Potassium, Blood 3.1 mmol/L (3.5-5.5); Sodium, Blood 134.0 mmol/L (136-145)
[2025-01-06 08:16] VITALS: BP 147/79
[2025-01-06] MEDS ORDERED: Fluticasone 0.05% Nasal Spray SCH (09:00)
[2025-01-06 13:33] LABS: Vancomycin, Trough 19.6 ug/mL (5.0-10.0)
[2025-01-06] MEDS ORDERED: CefTRIAXone Sodium 1,000 MG in NS 100 ML IV ONE (14:00)
[2025-01-06] MEDS ORDERED: CeFAZolin Sodium 2,000 MG in NS 100 ML IV SCH (16:15)
[2025-01-06 19:30] VITALS: BP 120/57
[2025-01-07 06:26] VITALS: BP 123/81
[2025-01-07 06:39] LABS: BASOPHILS ABSOLUTE AUTO 0.05 K/mm3 (0.00-0.23); BASOPHILS PERCENT AUTO 1 % (0-2); EOSINOPHILS ABSOLUTE AUTO 0.03 K/mm3 (0.00-0.68); EOSINOPHILS PERCENT AUTO 0 % (0-6); Hematocrit 24.9 % (37.0-53.0); Hemoglobin 8.0 g/dL (13.5-17.5); IMMATURE GRAN ABSOLUTE AUTO 0.26 K/mm3 (0.00-0.10); IMMATURE GRAN PERCENT AUTO 3 % (0-1); LYMPHOCYTES ABSOLUTE AUTO 1.99 K/mm3 (0.84-5.20); LYMPHOCYTES PERCENT AUTO 19 % (21-46); MONOCYTES ABSOLUTE AUTO 1.17 K/mm3 (0.16-1.47); MONOCYTES PERCENT AUTO 11 % (4-13); Mean Corpuscular HGB Conc 32.1 g/dL (31.5-36.5); Mean Corpuscular Volume 80 fL (80-100); NEUTROPHILS ABSOLUTE AUTO 7.00 K/mm3 (1.96-9.15); NEUTROPHILS PERCENT AUTO 67 % (41-73); NRBC ABSOLUTE 0.00 K/mm3 (0.00-0.02); NRBC Auto 0.0 /100 WBC (0.0-0.2); Platelet Count 348 K/mm3 (150-400); RDW Coefficient Variation 15.1 % (11.7-14.2); RDW Standard Deviation 44.0 fL (35.1-46.3)
[2025-01-07 06:57] LABS: Anion Gap 8.0 mmol/L (3-11); Blood Urea Nitrogen 6.0 mg/dL (8-24); CO2, Blood 26.0 mmol/L (21-32); Calcium, Blood 7.8 mg/dL (8.5-10.1); Chloride, Blood 105.0 mmol/L (98-108); Creatinine, Blood 0.75 mg/dL (0.60-1.20); Glucose, Blood 117.0 mg/dL (70-99); Potassium, Blood 3.5 mmol/L (3.5-5.5); Sodium, Blood 135.0 mmol/L (136-145)
[2025-01-07 07:31] VITALS: BP 125/68
[2025-01-07] MEDS ORDERED: CefTRIAXone Sodium 2,000 MG in NS 100 ML IV SCH (09:00)
[2025-01-07 20:26] VITALS: BP 133/76
[2025-01-07] MEDS ORDERED: Arginine/Glutamine/Calcium Hmb 1 Packet PO SCH (21:00)
[2025-01-08 05:47] VITALS: BP 146/93
[2025-01-08 07:57] VITALS: BP 100/57
[2025-01-08] MEDS ORDERED: Multivitamins 1 Tab PO SCH (09:00)
[2025-01-08] MEDS ORDERED: Zinc Sulfate 220 MG Cap (Provides 50MG) PO SCH (09:00)
[2025-01-08 14:53] VITALS: BP 154/95
[2025-01-08 19:40] VITALS: BP 145/89
[2025-01-09 09:00] VITALS: BP 148/101
[2025-01-10 08:17] VITALS: BP 129/99
[2025-01-10] MEDS ORDERED: INLYTA5 MG PO (11:13)
[2025-01-10] MEDS ORDERED: Tessalon200 MG PO (11:13)
[2025-01-10] MEDS ORDERED: CEFAZOLIN SODIUM IV (11:15)
[2025-01-10] MEDS ORDERED: FAMO20 PO (11:16)
[2025-01-10] MEDS ORDERED: Flonase 0.05% N16 GM (11:18)
[2025-01-10] MEDS ORDERED: LORA10ER PO (11:18)
[2025-01-10] MEDS ORDERED: MULVITA PO (11:19)
[2025-01-10] MEDS ORDERED: MELA3 PO (11:19)
[2025-01-10] MEDS ORDERED: ZINC220 PO (11:19)
[2025-01-10] MEDS ORDERED: BACL10 PO (11:20)
[2025-01-10] MEDS ORDERED: ELIQUIS5 M2 PO (11:25)
== END 2025-01-10 14:11 | disposition home health service (06) | DRG 698 ==
LOC: ER 14:20 → MEDS 21:39 → ERHOLD 21:39 → MEDS 01-04 11:35
PROVIDERS: Emergency Medicine; Internal Medicine; ADMIT Internal Medicine
PROC: 0T2BX0Z Change Drainage Device in Bladder, External Approach (ICD-10-PCS; principal; 2025-01-03)
PROC: 3E03329 Introduction of Other Anti-infective into Peripheral Vein, Percutaneous Approach (ICD-10-PCS; 2025-01-03)
DX: T83.511A Infection and inflammatory reaction due to indwelling urethral catheter, initial encounter (principal); A40.8 Other streptococcal sepsis; L89.893 Pressure ulcer of other site, stage 3; M86.8X8 Other osteomyelitis, other site; L03.116 Cellulitis of left lower limb; G82.20 Paraplegia, unspecified; Z16.11 Resistance to penicillins; I82.412 Acute embolism and thrombosis of left femoral vein; L89.312 Pressure ulcer of right buttock, stage 2; Y84.6 Urinary catheterization as the cause of abnormal reaction of the patient, or of later complication, without mention of misadventure at the time of the procedure; Y92.89 Other specified places as the place of occurrence of the external cause; E87.6 Hypokalemia; Z99.3 Dependence on wheelchair; Z86.14 Personal history of Methicillin resistant Staphylococcus aureus infection; Z88.1 Allergy status to other antibiotic agents; Z88.8 Allergy status to other drugs, medicaments and biological substances; Z79.899 Other long term (current) drug therapy; R05.3 Chronic cough; L89.892 Pressure ulcer of other site, stage 2
CPT/HCPCS: 36415; 51705; 71045; 73502; 73701; 74177; 80048; 80053; 80202; 81001; 82803; 83605; 83735; 84100; 84484; 85025; 85610; 85651; 85730; 86140; 86850; 86900; 86901; 87040; 87077; 87086; 87147; 87186; 87637; 92610; 93005; 93010; 93306; 93971; 94640; 94664; 94760; 96361; 96374; 96375; 99285-25; A9270; C1751; C2627; J0690; J0696; J1650; J1956; J2185; J2405; J2765; J3010; J3373; J3480; J7040; J7050; J7120; Q9967

== ENCOUNTER 2025-01-12 12:57 | Inpatient (IN) | payer OTHER ==
[~2025-01-12] VITALS: Ht 162.6 cm; Wt 101.2 kg
[~2025-01-12 12:57] MED LIST changes: +BACL10 PO; +CEFAZOLIN SODIUM IV; +ELIQUIS5 M2 PO; +FAMO20 PO; +Flonase 0.05% N16 GM; +INLYTA5 MG PO; +LORA10ER PO; +Tessalon200 MG PO; +ZINC220 PO
[2025-01-12] MEDS ORDERED: Ondansetron HCl 2 MG / ML 2ML Vial ONE (16:32)
[2025-01-12] MEDS ORDERED: Ondansetron HCl 2 MG / ML 2ML Vial IV ONE (16:50)
[2025-01-12] MEDS ORDERED: CeFAZolin Sodium 2,000 MG in NS 100 ML IV ONE (17:05)
[2025-01-12 17:19] LABS: BASOPHILS ABSOLUTE AUTO 0.10 K/mm3 (0.00-0.23); BASOPHILS PERCENT AUTO 1 % (0-2); EOSINOPHILS ABSOLUTE AUTO 0.25 K/mm3 (0.00-0.68); EOSINOPHILS PERCENT AUTO 1 % (0-6); Hematocrit 26.7 % (37.0-53.0); Hemoglobin 8.3 g/dL (13.5-17.5); IMMATURE GRAN ABSOLUTE AUTO 0.23 K/mm3 (0.00-0.10); IMMATURE GRAN PERCENT AUTO 1 % (0-1); LYMPHOCYTES ABSOLUTE AUTO 2.76 K/mm3 (0.84-5.20); LYMPHOCYTES PERCENT AUTO 16 % (21-46); MONOCYTES ABSOLUTE AUTO 1.49 K/mm3 (0.16-1.47); MONOCYTES PERCENT AUTO 8 % (4-13); Mean Corpuscular HGB Conc 31.1 g/dL (31.5-36.5); Mean Corpuscular Volume 80 fL (80-100); NEUTROPHILS ABSOLUTE AUTO 13.00 K/mm3 (1.96-9.15); NEUTROPHILS PERCENT AUTO 73 % (41-73); NRBC ABSOLUTE 0.00 K/mm3 (0.00-0.02); NRBC Auto 0.0 /100 WBC (0.0-0.2); Platelet Count 813 K/mm3 (150-400); RDW Coefficient Variation 14.7 % (11.7-14.2); RDW Standard Deviation 43.4 fL (35.1-46.3)
[2025-01-12] MEDS ORDERED: NS 1,000 ML IV SCH (17:50)
[2025-01-12 17:54] LABS: Alanine Aminotransfer (ALT/SGP 54.0 U/L (12-78); Albumin, Blood 2.1 g/dL (3.4-5.0); Albumin/Globulin Ratio 0.3 (0.8-1.8); Anion Gap 8.0 mmol/L (3-11); Aspartate Aminotrans (AST/SGOT 59.0 U/L (12-37); Bilirubin, Total 0.2 mg/dL (0.1-1.0); Blood Urea Nitrogen 14.0 mg/dL (8-24); CO2, Blood 32.0 mmol/L (21-32); Calcium, Blood 8.5 mg/dL (8.5-10.1); Chloride, Blood 100.0 mmol/L (98-108); Globulin, Blood 6.8 g/dL (2.2-4.0); Glucose, Blood 105.0 mg/dL (70-99); Potassium, Blood 3.5 mmol/L (3.5-5.5); Sodium, Blood 136.0 mmol/L (136-145); Total Protein, Blood 8.9 g/dL (6.4-8.2)
[2025-01-12 18:09] LABS: Creatinine, Blood 0.58 mg/dL (0.60-1.20)
[2025-01-12] MEDS ORDERED: Ondansetron HCl 2 MG / ML 2ML Vial IV PRN (19:35)
[2025-01-12] MEDS ORDERED: FLU VACC TS2025-26(6MOS UP)/PF 45 MCG/0.5 ML SYRINGE IM SCH (19:40)
[2025-01-12] MEDS ORDERED: OxyCODONE 5 mg/Acetamin 325 mg TABLET PO PRN (19:55)
[2025-01-12] MEDS ORDERED: FentaNYL Citrate 50 MCG/ML 2 ML Injection IV ONE (20:00)
[2025-01-12] MEDS ORDERED: Metoclopramide HCl 5MG / ML 2ML Vial IV ONE (20:00)
[2025-01-12] MEDS ORDERED: Lactobacil 2-S.Thermo-Bifido 1 1 Cap PO SCH (21:00)
[2025-01-12 23:58] VITALS: BP 160/100
[2025-01-13] VITALS (9 sets, daily range): BP systolic 121–172; BP diastolic 57–110
--- NOTE | 2025-01-13 01:02 | NUR ---
ADMIT NOTE REPORT RECIVED BY THIS RN @ APPORX 2328 FROM [facility] PT ARRIVED TO PCU ROOM 20 @ APPROX 2347 AND WAS SLID OVER FROM ER BED TO PCU BED BY MEDICAL STAFF, PT HOME WHEEL CHAIR IN ROOM. PT IS ALERT, HOLDING APPROPRIATE CONVERSATION, MOVING ARMS WNL, PT UNABLE TO MOVE LEGS/HX OF C7 INJURY RESULTING IN PARAPLEGIA, ABLE TO MAKE NEEDS KNOWN, OBEYS COMMANDS VSS, HR TACHY 110'S AND BP ELEVATED 160'S/PT REPORTING PAIN, PT DENIES CHEST P/P AT THIS TIME SPO2 GREATER THAN 92% ON RA, PT DENIES SOB, PT HAVING CHONIC COUGH THAT HE STATES HE HAS HAD FOR A LONG TIME NOW BOWEL TONES PRESENT IN ALL 4Q, PT REPORTS LAST BM WAS 01/12/25 SUPRAPUBIC CATH CHANGED UPPON ARRIVAL TO UNIT, URINE YELLOW IN COLRO PT REPORTING PAIN ALL OVER FROM MUSCLE SPASMS/MEDICATED PER ORDERS AND PATIENT REQUEST MULTIPLE WOUNDS/SEE PHOTOS IN CHART
[2025-01-13 02:31] LABS: Source, Urine Foley catheter
[2025-01-13 02:36] LABS: Bilirubin, Urine Neg (Neg); Glucose Qualitative, Urine Neg (Neg); Ketones, Urine Neg (Neg); Leukocyte Esterase, Urine 2+ (Neg); Protein, Urine 3+ (Neg); Specific Gravity, Urine 1.005 (1.003-1.022); Urobilinogen, Urine NORM (Normal)
[2025-01-13 02:44] LABS: Color, Urine Yellow (P-Yellow)
[2025-01-13 02:45] LABS: White Blood Cells, Urine 25-50 /hpf (0-5)
[2025-01-13 02:46] LABS: Red Blood Cells, Urine 50-100 /hpf (0-2)
[2025-01-13 04:07] LABS: BASOPHILS ABSOLUTE AUTO 0.06 K/mm3 (0.00-0.23); BASOPHILS PERCENT AUTO 1 % (0-2); EOSINOPHILS ABSOLUTE AUTO 0.33 K/mm3 (0.00-0.68); EOSINOPHILS PERCENT AUTO 3 % (0-6); Hematocrit 28.8 % (37.0-53.0); Hemoglobin 8.9 g/dL (13.5-17.5); IMMATURE GRAN ABSOLUTE AUTO 0.18 K/mm3 (0.00-0.10); IMMATURE GRAN PERCENT AUTO 1 % (0-1); LYMPHOCYTES ABSOLUTE AUTO 2.47 K/mm3 (0.84-5.20); LYMPHOCYTES PERCENT AUTO 20 % (21-46); MONOCYTES ABSOLUTE AUTO 1.04 K/mm3 (0.16-1.47); MONOCYTES PERCENT AUTO 8 % (4-13); Mean Corpuscular HGB Conc 30.9 g/dL (31.5-36.5); Mean Corpuscular Volume 82 fL (80-100); NEUTROPHILS ABSOLUTE AUTO 8.55 K/mm3 (1.96-9.15); NEUTROPHILS PERCENT AUTO 68 % (41-73); NRBC ABSOLUTE 0.00 K/mm3 (0.00-0.02); NRBC Auto 0.0 /100 WBC (0.0-0.2); Platelet Count 781 K/mm3 (150-400); RDW Coefficient Variation 14.7 % (11.7-14.2); RDW Standard Deviation 44.2 fL (35.1-46.3)
[2025-01-13 04:35] LABS: Alanine Aminotransfer (ALT/SGP 48.0 U/L (12-78); Albumin, Blood 1.9 g/dL (3.4-5.0); Albumin/Globulin Ratio 0.3 (0.8-1.8); Anion Gap 6.0 mmol/L (3-11); Aspartate Aminotrans (AST/SGOT 53.0 U/L (12-37); Bilirubin, Total 0.2 mg/dL (0.1-1.0); Blood Urea Nitrogen 9.0 mg/dL (8-24); CO2, Blood 30.0 mmol/L (21-32); Calcium, Blood 7.9 mg/dL (8.5-10.1); Chloride, Blood 102.0 mmol/L (98-108); Creatinine, Blood 0.56 mg/dL (0.60-1.20); Globulin, Blood 6.5 g/dL (2.2-4.0); Glucose, Blood 116.0 mg/dL (70-99); Magnesium, Blood 2.0 mg/dL (1.6-2.4); Potassium, Blood 3.4 mmol/L (3.5-5.5); Sodium, Blood 135.0 mmol/L (136-145); Total Protein, Blood 8.4 g/dL (6.4-8.2)
--- NOTE | 2025-01-13 06:47 | NUR ---
SHIFT SUMMARY PT IS A&O X 4, ABLE TO MAKE NEEDS KNOWN, OBEYS COMMANDS, C7 INJURY RESULTING IN PARAPALEGIA, PT ABLE TO MOVE ARMS WNL, Q2 REPOSITIONING AT PATIENT ALLOWS, CALLS APPROPRIATELY SPO2 GREATER THAN 92% RA , LUNGS SOUND CLEAR T/O, PT HAS OCCASIONAL COUGH THAT IS NONPRODUCTIVE, NO SIGNS OF RESPIRATORY DISTRESS NOTED. CONTINUOUS TELE MONITORING, SINUS HR 110 S, PULSES PRESENT T/O NEEDING DOPPLER FOR LLE, DENIES CHEST P/P T/O THIS SHIFT. BOWEL TONES PRESENT IN ALL 4Q. CHRONIC SUPRAPUBIC CATH THAT WAS CHANGED UPON ARRIVAL TO PCU 20. BED LOWEST POSITION, CALL LIGHT IN REACH, AWAITING TO GIVE REPORT TO ONCOMING RN.
[2025-01-13 08:55] LABS: Prothrombin Time Results 12.0 Sec (9.7-11.5)
[2025-01-13] MEDS ORDERED: Heparin Sodium,Porcine/0.5 NS 500 ML IV SCH (09:30)
[2025-01-13 11:57] LABS: BODY FLUID RBC 0.198 M/mm3 (0-0)
[2025-01-13 12:07] LABS: RBC Count, Synovial Fluid 198000 /mm3 (0-0); WBC Count, Synovial Fluid 55340 /mm3 (0-180)
[2025-01-13] MEDS ORDERED: TOLTERODINE TART4 MG PO (12:10)
[2025-01-13] MEDS ORDERED: METHENAM HIP PO (12:11)
[2025-01-13] MEDS ORDERED: AMOX-CLAV ER 11 EAC1 PO (12:13)
[2025-01-13] MEDS ORDERED: FLUT.05NI (12:14)
[2025-01-13 12:54] LABS: Lymphs, Synovial Fluid 2 % (0-15); Monocytes/Macrophages, Synovia 1 % (0-65); Neutrophils, Synovial Fluid 97 % (0-24)
[2025-01-13 12:55] LABS: Appearance, Synovial Fluid Cloudy (Clear); Color, Synovial Fluid Red (None-P Yel)
[2025-01-13] MEDS ORDERED: Vancomycin (Pharmacy Consult) IV SCH (17:00)
[2025-01-13] MEDS ORDERED: Vancomycin HCL 2,500 MG in NS 500 ML IV ONE (17:10)
--- NOTE | 2025-01-13 17:59 | NUR ---
SHIFT SUMMARY PT IS A&O X4, AND ABLE TO APPROPRIATELY EXPRESS NEEDS. PT RECIEVED REPOSITIONING TOLERATED D/T LACK OF IND MOBILITY FROM PARAPALEGIA. PT WAS RELUCTANT TO RECIEVE SOME CARE HE REALLY WANTED TO REST, BUT WITH EDUCATION HE WAS WILLING TO ALLOW MOST INTERVENTIONS. GENERALIZED PAIN FLUCTUATED T/O SHIFT, MEDICATED PER EMAR. PT MAINTAINED O2 SATS ABOVE 90% ON RM AIR. SINUS TACH 110s-130s. BPs WERE STABLE T/O MAJORITY OF SHIFT BUT ELEVATED AROUND TIME OF EVENING REASESSMENT. PT MEDICATED FOR HIS PAIN HAS IMPROVED BP. L HIP ASPIRATION COMPLETED THIS MORNING, SAMPLE SENT TO LAB. PT TO BE NPO AT MIDNIGHT PER ORDERS FOR POSSIBLE I&D TOMORROW. HEPARIN DCd FOR PROCEDURE. WOUND CARE PERFORMED ON COCCYX. SITE CLEANED WITH WOUND CLEANSER AND NON-ADHERENT DRESSING APPLIED UNDER ABSORBANT DRESSING. FLUIDS CONTINUING TO INFUSE PER EMAR. PTs PARENTS CAME TO BEDSIDE, [facility]AMEON [facility]ORAN UPDATED THEM ON CARE. PT RESTING IN BED AT THIS TIME. SEE NOTES FOR UPDATES.
[2025-01-13] MEDS ORDERED: Oxymetazoline 0.05% Nasal Relief Spray 15mL BTL PRN (20:40)
[2025-01-14 03:33] VITALS: BP 135/110
[2025-01-14 03:43] LABS: BASOPHILS ABSOLUTE AUTO 0.04 K/mm3 (0.00-0.23); BASOPHILS PERCENT AUTO 0 % (0-2); EOSINOPHILS ABSOLUTE AUTO 0.28 K/mm3 (0.00-0.68); EOSINOPHILS PERCENT AUTO 3 % (0-6); Hematocrit 26.1 % (37.0-53.0); Hemoglobin 8.1 g/dL (13.5-17.5); IMMATURE GRAN ABSOLUTE AUTO 0.11 K/mm3 (0.00-0.10); IMMATURE GRAN PERCENT AUTO 1 % (0-1); LYMPHOCYTES ABSOLUTE AUTO 2.58 K/mm3 (0.84-5.20); LYMPHOCYTES PERCENT AUTO 28 % (21-46); MONOCYTES ABSOLUTE AUTO 0.90 K/mm3 (0.16-1.47); MONOCYTES PERCENT AUTO 10 % (4-13); Mean Corpuscular HGB Conc 31.0 g/dL (31.5-36.5); Mean Corpuscular Volume 82 fL (80-100); NEUTROPHILS ABSOLUTE AUTO 5.44 K/mm3 (1.96-9.15); NEUTROPHILS PERCENT AUTO 58 % (41-73); NRBC ABSOLUTE 0.00 K/mm3 (0.00-0.02); NRBC Auto 0.0 /100 WBC (0.0-0.2); Platelet Count 776 K/mm3 (150-400); RDW Coefficient Variation 14.6 % (11.7-14.2); RDW Standard Deviation 44.0 fL (35.1-46.3)
[2025-01-14 04:02] LABS: Alanine Aminotransfer (ALT/SGP 55.0 U/L (12-78); Albumin, Blood 1.8 g/dL (3.4-5.0); Albumin/Globulin Ratio 0.3 (0.8-1.8); Anion Gap 6.0 mmol/L (3-11); Aspartate Aminotrans (AST/SGOT 68.0 U/L (12-37); Bilirubin, Total 0.1 mg/dL (0.1-1.0); Blood Urea Nitrogen 8.0 mg/dL (8-24); CO2, Blood 29.0 mmol/L (21-32); Calcium, Blood 8.2 mg/dL (8.5-10.1); Chloride, Blood 104.0 mmol/L (98-108); Creatinine, Blood 0.59 mg/dL (0.60-1.20); Globulin, Blood 6.3 g/dL (2.2-4.0); Glucose, Blood 106.0 mg/dL (70-99); Potassium, Blood 4.0 mmol/L (3.5-5.5); Sodium, Blood 135.0 mmol/L (136-145); Total Protein, Blood 8.1 g/dL (6.4-8.2)
--- NOTE | 2025-01-14 05:57 | NUR ---
SHIFT SUMMARY PT IS A&O X 4, IRRITABLE AT TIMES, ABLE TO MAKE NEEDS KNOWN, OBEYS COMMANDS, C7 INJURY RESULTING IN PARAPALEGIA, PT ABLE TO MOVE ARMS WNL, Q2 REPOSITIONING PATIENT ALLOWS/ PT REFUSING TURNS, CALLS APPROPRIATELY SPO2 GREATER THAN 92% RA , LUNGS SOUND CLEAR T/O, PT HAS OCCASIONAL COUGH THAT IS NONPRODUCTIVE, NO SIGNS OF RESPIRATORY DISTRESS NOTED. CONTINUOUS TELE MONITORING, SINUS HR 110-120 S/ OCCASIONALLY TOUCHING 130 S BUT NONSUSTAINED, PULSES PRESENT T/O/ NEEDING DOPPLER FOR LLE, DENIES CHEST P/P T/O THIS SHIFT. BOWEL TONES PRESENT IN ALL 4Q. CHRONIC SUPRAPUBIC CATH DRAINING TO GRAVITY, URINE YELLOW IN COLOR BED LOWEST POSITION, CALL LIGHT IN REACH, AWAITING TO GIVE REPORT TO ONCOMING RN.
[2025-01-14 07:49] VITALS: BP 171/69
[2025-01-14] MEDS ORDERED: Dose Adjust by Pharmacy XX STA (09:37)
[2025-01-14] MEDS ORDERED: Heparin Sodium,Porcine/0.5 NS 500 ML IV SCH (09:40)
[2025-01-14 11:59] VITALS: BP 124/70
--- NOTE | 2025-01-14 12:29 | NUR ---
ASSUMPTION OF CARE ASSUMED CARE OF PATIENT AT 0700 AFTER BEDSIDE SHIFT RFPORT WITH NIGHT NURSE. PATIENT LAYING IN BED AWAKE BUT TIRED, ALERT AND ORIENTED X4. PATIENTS O2 SATS >94% ON ROOM AIR. PATIENT WAS NPO AT BEGINING OF SHIFT AND DIET ORDERS HAVE BEEN UPDATED PER PROVIDER. PATIENT HAS DVT RIGH LEG WHICH IS RED AND SWOLLEN, MEDICATED PER EMAR. PATIENT HAS SEVERAL WOUNDS ON HIP, LEGS, FEET AND COCCYX, SEE PHOTOS IN CHART. PATIENT'S LEFT HIP IS BEING FOLLOWED BY ORTHO FOR SEPSIS. NO SURGERY SCHEDULED AT THIS TIME. PATIENT LAYING IN BED IN LOWEST POSITION, CALL LIGHT IS WITH IN REACH.
--- NOTE | 2025-01-14 12:55 | NUR ---
PATIENT STATES PIV IS SORE AND TENDER WITH SHARP PAIN WHILE NS FLUSH IS GOING THROUGH AFTER VANCO INFUSION FINISHED. CALLED PHARMACY, AND WAS RECOMENDED TO LET THE VEIN REST AND TRY FLUSHING LATER.
[2025-01-14 15:50] VITALS: BP 147/100
--- NOTE | 2025-01-14 18:25 | NUR ---
SHIFT SUMMARY AFTER ORTHO CONSULT, PATIENT WILL NOT HAVE SURGERY TODAY. DIET ORDERS CHANGED PER PROVIDER. HEPARIN RESTARTED PER PROVIDER. PATIENT HAD A SHOWER AND WOUNDS WERE DRESSED WITH MEPILEX. PATIENT IS RESTING IN BED IN LOWEST POSITION, CALL LIGHT IS WITH IN REACH.
[2025-01-14 18:37] LABS: Vancomycin, Trough 23.0 ug/mL (5.0-10.0)
[2025-01-14 19:55] VITALS: BP 121/60
[2025-01-15] VITALS (8 sets, daily range): BP systolic 141–189; BP diastolic 76–120
[2025-01-15 02:32] LABS: Anion Gap 7.0 mmol/L (3-11); Blood Urea Nitrogen 10.0 mg/dL (8-24); CO2, Blood 29.0 mmol/L (21-32); Calcium, Blood 8.2 mg/dL (8.5-10.1); Chloride, Blood 103.0 mmol/L (98-108); Creatinine, Blood 0.62 mg/dL (0.60-1.20); Glucose, Blood 111.0 mg/dL (70-99); Magnesium, Blood 2.0 mg/dL (1.6-2.4); Phosphorus, Blood 3.4 mg/dL (2.5-4.9); Potassium, Blood 4.0 mmol/L (3.5-5.5); Sodium, Blood 135.0 mmol/L (136-145)
[2025-01-15 02:41] LABS: BASOPHILS ABSOLUTE AUTO 0.09 K/mm3 (0.00-0.23); BASOPHILS PERCENT AUTO 1 % (0-2); EOSINOPHILS ABSOLUTE AUTO 0.30 K/mm3 (0.00-0.68); EOSINOPHILS PERCENT AUTO 3 % (0-6); Hematocrit 24.9 % (37.0-53.0); Hemoglobin 7.8 g/dL (13.5-17.5); IMMATURE GRAN ABSOLUTE AUTO 0.14 K/mm3 (0.00-0.10); IMMATURE GRAN PERCENT AUTO 1 % (0-1); LYMPHOCYTES ABSOLUTE AUTO 2.78 K/mm3 (0.84-5.20); LYMPHOCYTES PERCENT AUTO 24 % (21-46); MONOCYTES ABSOLUTE AUTO 1.14 K/mm3 (0.16-1.47); MONOCYTES PERCENT AUTO 10 % (4-13); Mean Corpuscular HGB Conc 31.3 g/dL (31.5-36.5); Mean Corpuscular Volume 82 fL (80-100); NEUTROPHILS ABSOLUTE AUTO 7.10 K/mm3 (1.96-9.15); NEUTROPHILS PERCENT AUTO 61 % (41-73); NRBC ABSOLUTE 0.02 K/mm3 (0.00-0.02); NRBC Auto 0.2 /100 WBC (0.0-0.2); Platelet Count 791 K/mm3 (150-400); RDW Coefficient Variation 14.6 % (11.7-14.2); RDW Standard Deviation 43.6 fL (35.1-46.3)
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
[2025-01-15] MEDS ORDERED: Fluticasone 0.05% Nasal Spray SCH (09:00)
[2025-01-15] MEDS ORDERED: Multivitamins 1 Tab PO SCH (09:00)
[2025-01-15] MEDS ORDERED: Dose Adjust by Pharmacy XX STA ×2 (09:01→15:58)
[2025-01-15] MEDS ORDERED: Heparin Sodium 5000 Units/ML 1ML MDV IV ONE (09:05)
--- NOTE | 2025-01-15 11:14 | NUR ---
ASSUMPTION OF CARE ASSUMED CARE OF PATIENT AT 0700 AFTER BEDSIDE SHIFT REPORT FROM CERTIFIED SCRUM MASTER NURSE. PATIENT WAS AWAKE, ALERT AND ORIENTED X4 IN BED. PATIENT O2 SATS>94%. HEPARIN DRIP WAS TITRATED UP TO 26 UNITS/KG/HR PER EMAR AND IS INFUSING. PATIENTS PRIOR RIGHT PIV WAS PULLED DURING CERTIFIED SCRUM MASTER. NEW R PIV WAS PLACED WITH ULTRA SOUND. PATIENTS STATUS WAS CHANGED TO MED WITH NO TELE. PATIENT HAS SUPRA PUBIC CATHETER IN PLACE DRAINING TO GRAVITY. PATIENT HAS DVT IN LLE MEDICATED PER EMAR. LEFT LOWER EXTREMITY IS RED AND SWOLLEN, PROVIDER AWARE. HIP IS RED WITH SKIN WOUNDS AROUND AREA. PHOTOS IN CHART. MEPILEX PLACED YESTERDAY AND IS DRY CLEAN DRY AND INTACT . PROVIDER AWARE. PATIENT RESTING COMFORTABLY IN BED IN LOWEST POSITION. CALL LIGHT WITH IN REACH.
[2025-01-15] MEDS ORDERED: CeFAZolin Sodium 2,000 MG in NS 100 ML IV SCH (16:00)
--- NOTE | 2025-01-15 18:02 | NUR ---
TELEPHONE CALL TO RESIDENT TEAM TO DISCUSS NEW ONSET HEADACHE AND HTN. TO UNIT TO EVALUATE. MEDICATE PER EMAR PER TEAM AND CONTINUE TO EVALUATE. PUPILS EQUAL, MALT ROASTER EQAL, A/A/OX4. DENIES VISION DIFFICULTY.
--- NOTE | 2025-01-15 18:34 | NUR ---
SHIFT SUMMARY PATIENT ALERT AND ORIENTED X4. O2 SATS >95% ON ROOM AIR. STATUS CHANGE TO MED WITH NO TELE. SUPRAPUBIC CATHETER IN PLACE DRAINING TO GRAVITY. PHARMACY IS MANAGING HEPRIN DRIP. BP INCREASED AROUND 17:30 WITH HEADACHE. NOTIFIED PROVIDER. MEDICATED PER EMAR. HE IS RESTING IN BED COMFORTABLY IN LOWEST POSITION, CALL LIGHT WITH IN REACH. AWAITING TO GIVE REPORT TO CUTTING MACHINE OPERATOR HELPER NURSE.
--- NOTE | 2025-01-15 19:07 | NUR ---
PATIENT REFUSES REPOSITIONING AND REPOSITIONS HIMSELF. MEPILEX BANDAGES ARE DRY, CLEAN, AND INTACT.
--- NOTE | 2025-01-15 20:46 | NUR ---
PATIENT EVENT @ APPROX 1930 PT USED CALL LIGHT, COIL MAKER ENTERED ROOM AND PER COIL MAKER PT WAS CRYING ASKING TO TALK TO A THERAPIST, COIL MAKER CAME TO THIS RN AND RN ENTERED THE ROOM, PT DENIED WANTING TO HURT HIMSELF OR HAVING A PLAN TO KILL HIMSELF BUT STATED HE WOULD NOT BE UPSET IF HE "WASN'T HERE", PT OPEN TO TALKING TO SPIRITUAL CARE, THIS RN INFORMED BATCH AND FURNACE OPERATOR, SPIRITUAL CARE TO BEDSIDE @ APPROX 2019.
--- NOTE | 2025-01-15 21:56 | NUR ---
Call back - Pt was depressed about current situation and provided room to ventilate about his life and events leading up to this moment. Pt reports being tired of having to deal with illness and coming to hospital regularly. Build rapport and explored coping mechanisms, family support, and dreams. Pt is a service order dispatcher, has a business degree and enjoys learning. Pt able to verbalize future plans. He currently lives with parents. Other then immediate family, pt has one friend who lives out of state. Discussed importance of support system and encouraged pt that he has purpose. We confabulated about forgiveness. Pt able to verbalize the benefits of interventions and requests client reporting associate support tomorrow. He voiced gratitude for the visit.
[2025-01-16] MEDS ORDERED: Dose Adjust by Pharmacy XX STA ×2 (00:05→13:22)
[2025-01-16 05:42] VITALS: BP 150/84
--- NOTE | 2025-01-16 06:00 | NUR ---
SHIFT SUMMARY PT IS A&O X 4, IRRITABLE AT TIMES, ABLE TO MAKE NEEDS KNOWN, OBEYS COMMANDS, C7 INJURY RESULTING IN PARAPALEGIA, PT ABLE TO MOVE ARMS WNL, Q2 REPOSITIONING PATIENT ALLOWS/ PT REFUSING TURNS, CALLS APPROPRIATELY SPO2 GREATER THAN 92% RA , LUNGS SOUND CLEAR T/O, PT HAS OCCASIONAL COUGH THAT IS NONPRODUCTIVE, NO SIGNS OF RESPIRATORY DISTRESS NOTED. HR 90-120 S, PULSES PRESENT T/O, DENIES CHEST P/P T/O THIS SHIFT. BOWEL TONES PRESENT IN ALL 4Q. CHRONIC SUPRAPUBIC CATH DRAINING TO GRAVITY, URINE YELLOW IN COLOR BED LOWEST POSITION, CALL LIGHT IN REACH, AWAITING TO GIVE REPORT TO ONCOMING RN.
[2025-01-16 06:14] LABS: BASOPHILS ABSOLUTE AUTO 0.10 K/mm3 (0.00-0.23); BASOPHILS PERCENT AUTO 1 % (0-2); EOSINOPHILS ABSOLUTE AUTO 0.30 K/mm3 (0.00-0.68); EOSINOPHILS PERCENT AUTO 3 % (0-6); Hematocrit 26.9 % (37.0-53.0); Hemoglobin 8.4 g/dL (13.5-17.5); IMMATURE GRAN ABSOLUTE AUTO 0.18 K/mm3 (0.00-0.10); IMMATURE GRAN PERCENT AUTO 2 % (0-1); LYMPHOCYTES ABSOLUTE AUTO 3.65 K/mm3 (0.84-5.20); LYMPHOCYTES PERCENT AUTO 35 % (21-46); MONOCYTES ABSOLUTE AUTO 1.02 K/mm3 (0.16-1.47); MONOCYTES PERCENT AUTO 10 % (4-13); Mean Corpuscular HGB Conc 31.2 g/dL (31.5-36.5); Mean Corpuscular Volume 81 fL (80-100); NEUTROPHILS ABSOLUTE AUTO 5.13 K/mm3 (1.96-9.15); NEUTROPHILS PERCENT AUTO 49 % (41-73); NRBC ABSOLUTE 0.02 K/mm3 (0.00-0.02); NRBC Auto 0.2 /100 WBC (0.0-0.2); Platelet Count 829 K/mm3 (150-400); RDW Coefficient Variation 14.6 % (11.7-14.2); RDW Standard Deviation 42.9 fL (35.1-46.3)
[2025-01-16] MEDS ORDERED: Clarify Drug Order XX ONE (06:45)
[2025-01-16 09:04] VITALS: BP 125/78
[2025-01-16] MEDS ORDERED: Heparin Sodium 5000 Units/ML 1ML MDV IV ONE (13:25)
[2025-01-16 13:32] LABS: Anion Gap 10.0 mmol/L (3-11); Blood Urea Nitrogen 12.0 mg/dL (8-24); CO2, Blood 25.0 mmol/L (21-32); Calcium, Blood 8.8 mg/dL (8.5-10.1); Chloride, Blood 103.0 mmol/L (98-108); Creatinine, Blood 0.57 mg/dL (0.60-1.20); Glucose, Blood 83.0 mg/dL (70-99); Magnesium, Blood 2.3 mg/dL (1.6-2.4); Phosphorus, Blood 4.3 mg/dL (2.5-4.9); Potassium, Blood 4.2 mmol/L (3.5-5.5); Sodium, Blood 134.0 mmol/L (136-145)
--- NOTE | 2025-01-16 15:30 | NUR ---
Upon receiving a referral for spiritual care, I visited the patient. He covers the same subjects as discussed earlier with Technology Consultant Sabin and the patient voices his need for support. Unfortunately our conversation was interrupted by a medical procedure and then when I went back to visit the patient, he was sleeping and did not awaken with the sound of his name. I allowed the patient to continue sleeping.
--- NOTE | 2025-01-16 15:43 | NUR ---
MULTIPLE ATTEMPTS MADE DURING SHIFT FOR WOUND REASSESMENT AND PHOTOS. DECLINES IN AM STATING WANTS A SHOWER FIRST. OFFERED SHOWER, STATES TO TIRED FOR A SHOWER MAYBE LATER. FOLLOWED UP SEVERAL TIMES AND OFFERED A SHOWER AND EXPLAINED THAT WOUNDS NEEDED ASSESSED AND REDRESSED. CONTINUES TO DECLINE DESPITE EDUCATION. WAFFLE OVERLAY ON BED, REFUSES ASSISTANCE WITH REPOSITIONING.
[2025-01-16 16:26] VITALS: BP 139/92
--- NOTE | 2025-01-16 17:35 | NUR ---
SHIFT SUMMARY: PT A/O X4, ABLE TO MAKE NEEDS KNOWN. PT NEEDS MOTIVATION FOR ADLs, AND MOOD APPEARS FLAT/WITHDRAWN. PT ABLE TO MOVE ARMS, PARAPALEGIA BLE DUE TO C7 INJURY. PT REFUSES REPOSITIONING. OFFERED PT SHOWER, AND DRESSING CHANGES TODAY. UNABLE TO ASSESS COCCYX/BUTTOCKS WOUNDS DUE TO NON-COMPLIANCE, ALL OTHER WOUND DRESSINGS C/D/I. PT REFUSED MULTIPLE ATTEMPTS. PT ON ROOM AIR, SATS >95%. DENIES SOB. PT HR 70-80s THIS SHIFT. DENIES CHEST PAIN/PRESSURE. OTHER VSS. CHRONIC SUPRAPUBIC CATH DRAINING TO GRAVITY, URINE YELLOW IN COLOR. PT UNABLE TO HAVE A BM TODAY. PT LYING IN BED, BED TO LOWEST POSITION, CALL WITHIN REACH.
--- NOTE | 2025-01-16 18:17 | NUR ---
At the request of two different chaplains I visited the Pt. late in the shift. Pt. is pleasant. Pt. re-told his story once again, and shared how his health and personal needs were complicated and that he just needed someone to talk to. Was able to provide theraputic listening. Pt. verbalized that he was encouraged and welcomed any spiritual care visits. Will make sure his spiritual care continues.
[2025-01-16] MEDS ORDERED: Enoxaparin 100 MG/ML 1ML SYR SC SCH (20:00)
[2025-01-16 20:11] VITALS: BP 136/71
[2025-01-17 03:20] VITALS: BP 99/62
[2025-01-17 03:38] LABS: BASOPHILS ABSOLUTE AUTO 0.09 K/mm3 (0.00-0.23); BASOPHILS PERCENT AUTO 1 % (0-2); EOSINOPHILS ABSOLUTE AUTO 0.20 K/mm3 (0.00-0.68); EOSINOPHILS PERCENT AUTO 2 % (0-6); Hematocrit 25.3 % (37.0-53.0); Hemoglobin 7.8 g/dL (13.5-17.5); IMMATURE GRAN ABSOLUTE AUTO 0.25 K/mm3 (0.00-0.10); IMMATURE GRAN PERCENT AUTO 2 % (0-1); LYMPHOCYTES ABSOLUTE AUTO 2.88 K/mm3 (0.84-5.20); LYMPHOCYTES PERCENT AUTO 25 % (21-46); MONOCYTES ABSOLUTE AUTO 1.06 K/mm3 (0.16-1.47); MONOCYTES PERCENT AUTO 9 % (4-13); Mean Corpuscular HGB Conc 30.8 g/dL (31.5-36.5); Mean Corpuscular Volume 82 fL (80-100); NEUTROPHILS ABSOLUTE AUTO 7.23 K/mm3 (1.96-9.15); NEUTROPHILS PERCENT AUTO 62 % (41-73); NRBC ABSOLUTE 0.02 K/mm3 (0.00-0.02); NRBC Auto 0.2 /100 WBC (0.0-0.2); Platelet Count 822 K/mm3 (150-400); RDW Coefficient Variation 14.8 % (11.7-14.2); RDW Standard Deviation 43.8 fL (35.1-46.3)
[2025-01-17] MEDS ORDERED: Clarify Drug Order XX ONE (04:05)
[2025-01-17 04:10] LABS: Anion Gap 7.0 mmol/L (3-11); Blood Urea Nitrogen 23.0 mg/dL (8-24); CO2, Blood 28.0 mmol/L (21-32); Calcium, Blood 8.4 mg/dL (8.5-10.1); Chloride, Blood 103.0 mmol/L (98-108); Creatinine, Blood 0.61 mg/dL (0.60-1.20); Glucose, Blood 107.0 mg/dL (70-99); Magnesium, Blood 2.2 mg/dL (1.6-2.4); Phosphorus, Blood 4.5 mg/dL (2.5-4.9); Potassium, Blood 4.3 mmol/L (3.5-5.5); Sodium, Blood 134.0 mmol/L (136-145)
--- NOTE | 2025-01-17 05:42 | NUR ---
SHIFT SUMMARY PATIENT ALERT AND ORIENTED X4. WAS MEDICATED PER EMAR FOR PAIN. WOUND PHOTOGRAPHED AND REDRESSED AFTER PATIENT'S SHOWER. ON ROOM AIR WITH SPO2 >90%. VITAL SIGNS STABLE. NO ACUTE ISSUES NOTED OVERNIGHT. WILL CONTINUE TO MONITOR. CALL LIGHT WITHIN REACH.
[2025-01-17 08:35] VITALS: BP 142/90
[2025-01-17] MEDS ORDERED: Dose Adjust by Pharmacy XX STA ×2 (10:16→17:23)
[2025-01-17 11:13] VITALS: BP 105/86
[2025-01-17 15:37] VITALS: BP 125/72
--- NOTE | 2025-01-17 16:12 | NUR ---
TRANSFER UPDATE/ SHIFT SUMMARY REPORT GIVEN TO [facility] RN AT 1600. PT TRANSFERED TO [facility] RM 340 AT 1614 VIA HOSPITAL BED AND ON RA. PT PERSONAL BELONGINGS IN BAG AND TRANSFERED WITH PT. PT PERSONAL WHEELCHAIR WITH SEAT CUSHION TRANSFERED AT THIS TIME. PT A/OX4 AND COOPERATIVE OF MOST CARE. PT REFUSED Q2 TURNS, PT ABLE TO REPOSITION SELF FOR COMFORT. PT ABLE TO EXPRESS NEED AND USED CALL LIGHT APPROPIATE. PT VSS THROUGHOUT SHIFT WITH O2 SATS IN JENNIFER 90'S ON RA. NO REPORT OF CHEST PAIN/PRESSURE THROUGHOUT SHIFT. CANTU PATENT AND DRAINING YELLOW URINE TO GRAVITY. PT AWAITING COBRA FOR WASHOUT SURGERY, PT AWARE. HEP GTT RUNNING PER EMAR.
[2025-01-17 16:27] VITALS: BP 117/64
--- NOTE | 2025-01-17 16:40 | NUR ---
PT ARIVED VIA BED. ALERT X4, RA, NO TELE, SUPRAPUB CATH DRAINING YELLOW, LEFT LOWER EXTREMITY IS RED AND SWOLLEN WITH DRY SCALEY SKIN. REST OF WOUNDS ON BODY WOUNDS ARE COVERED. MANAGED PAIN WITH PRN'S
[2025-01-17 19:23] VITALS: BP 143/81
[2025-01-18] MEDS ORDERED: Dose Adjust by Pharmacy XX STA ×2 (00:02→06:40)
[2025-01-18] MEDS ORDERED: NS 250 ML IV PRN (00:10)
--- NOTE | 2025-01-18 00:14 | NUR ---
ACKNOWLEDGED PHARMACY ORDER--KEEP HEPARIN INFUSING AT THE SAME RATE.
--- NOTE | 2025-01-18 00:49 | NUR ---
PHONE CALL FROM [facility]--TALKED TO WILY. REQUESTING UPDATES ON PATIENT. PROVIDED UPDATES. NO ACUTE CHANGES AND CURRENT VITALS INFORMATION. STILL WAITING FOR BED. CURRENTLY 13 PEOPLE ON THE WAITLIST.
[2025-01-18 02:42] VITALS: BP 116/63
[2025-01-18 06:25] LABS: BASOPHILS ABSOLUTE AUTO 0.11 K/mm3 (0.00-0.23); BASOPHILS PERCENT AUTO 1 % (0-2); EOSINOPHILS ABSOLUTE AUTO 0.21 K/mm3 (0.00-0.68); EOSINOPHILS PERCENT AUTO 2 % (0-6); Hematocrit 25.3 % (37.0-53.0); Hemoglobin 7.7 g/dL (13.5-17.5); IMMATURE GRAN ABSOLUTE AUTO 0.20 K/mm3 (0.00-0.10); IMMATURE GRAN PERCENT AUTO 2 % (0-1); LYMPHOCYTES ABSOLUTE AUTO 3.22 K/mm3 (0.84-5.20); LYMPHOCYTES PERCENT AUTO 33 % (21-46); MONOCYTES ABSOLUTE AUTO 1.23 K/mm3 (0.16-1.47); MONOCYTES PERCENT AUTO 13 % (4-13); Mean Corpuscular HGB Conc 30.4 g/dL (31.5-36.5); Mean Corpuscular Volume 82 fL (80-100); NEUTROPHILS ABSOLUTE AUTO 4.72 K/mm3 (1.96-9.15); NEUTROPHILS PERCENT AUTO 49 % (41-73); NRBC ABSOLUTE 0.00 K/mm3 (0.00-0.02); NRBC Auto 0.0 /100 WBC (0.0-0.2); Platelet Count 796 K/mm3 (150-400); RDW Coefficient Variation 14.9 % (11.7-14.2); RDW Standard Deviation 43.8 fL (35.1-46.3)
--- NOTE | 2025-01-18 06:49 | NUR ---
[facility] SUMMARY NO ACUTE CHANGES. PT IS ON HEPARIN DRIP--PER PHARMACY NO DOSE ADJUSTMENTS THIS SHIFT. PER PHARMACY APPROVAL--HEPARIN WAS PAUSED FOR 10 MINUTES TO ALLOW FOR BLOOD DRAW THIS MORNING. HEP RESTARTED AFTER DRAW COMPLETE. PT IS ABLE TO MAKE NEEDS KNOWN. PT WITHDRAWN. REQUIRING ENCOURAGEMENT TO ALLOW FOR POSITION CHANGES AND PREVENTIONS OF PRESSURE INJURY. PT REFUSED TO ALLOW FEET TO BE ELEVATED OR HEELS TO BE FLOATED. PT EXPRESSED FRUSTRATION DURING TIMES OF DIRECT CARING--PT STATING HE JUST WANTS TO SLEEP. LEFT LOWER EXTREMITY REMAINS RED AND SWOLLEN. EXTREMITY IS WARM AND PULSES PALPABLE, BUT FAINT. CALL LIGHT ACCESSIBLE TO PATIENT. SUPRAPUBIC CATH IN PLACE, PATENT, DRAINING TO GRAVITY. CARE ONGOING.
[2025-01-18 07:13] LABS: Anion Gap 8.0 mmol/L (3-11); Blood Urea Nitrogen 17.0 mg/dL (8-24); CO2, Blood 26.0 mmol/L (21-32); Calcium, Blood 8.2 mg/dL (8.5-10.1); Chloride, Blood 106.0 mmol/L (98-108); Creatinine, Blood 0.54 mg/dL (0.60-1.20); Glucose, Blood 115.0 mg/dL (70-99); Magnesium, Blood 2.1 mg/dL (1.6-2.4); Phosphorus, Blood 3.7 mg/dL (2.5-4.9); Potassium, Blood 3.9 mmol/L (3.5-5.5); Sodium, Blood 136.0 mmol/L (136-145)
[2025-01-18 07:20] VITALS: BP 132/82
[2025-01-18] MEDS ORDERED: Enoxaparin 100 MG/ML 1ML SYR SC SCH (13:00)
--- NOTE | 2025-01-18 14:54 | NUR ---
ASSUMING CARE OF PATIENT
[2025-01-18 15:26] VITALS: BP 130/81
--- NOTE | 2025-01-18 18:52 | NUR ---
SHIFT SUMMARY: NO EVENTS OF CHANGES WITH THE PATIENT THROUGHOUT THE SHIFT. HEPARIN DRIP STOPPPED AND STARTED ON LOVENOX. PATIENT RECEIVED BED BATH, CHG BATH FOR PICC LINE, AND DRESSING CHANGED ON WOUNDS. PATIENT CALLS APPROPRIATELY, IN BED OR UP IN WHEELCHAIR WITH ASSISTANCE, CALL LIGHT WITHIN REACH, NO SIGNS OR SYMPTOMS OF DISTRESS, PLAN OF CARE ONGOING. WAITING FOR A BED AT [facility].
[2025-01-18 20:14] VITALS: BP 143/88
[2025-01-19 05:03] LABS: BASOPHILS ABSOLUTE AUTO 0.11 K/mm3 (0.00-0.23); BASOPHILS PERCENT AUTO 1 % (0-2); EOSINOPHILS ABSOLUTE AUTO 0.18 K/mm3 (0.00-0.68); EOSINOPHILS PERCENT AUTO 2 % (0-6); Hematocrit 26.0 % (37.0-53.0); Hemoglobin 7.8 g/dL (13.5-17.5); IMMATURE GRAN ABSOLUTE AUTO 0.26 K/mm3 (0.00-0.10); IMMATURE GRAN PERCENT AUTO 3 % (0-1); LYMPHOCYTES ABSOLUTE AUTO 2.45 K/mm3 (0.84-5.20); LYMPHOCYTES PERCENT AUTO 27 % (21-46); MONOCYTES ABSOLUTE AUTO 1.04 K/mm3 (0.16-1.47); MONOCYTES PERCENT AUTO 12 % (4-13); Mean Corpuscular HGB Conc 30.0 g/dL (31.5-36.5); Mean Corpuscular Volume 82 fL (80-100); NEUTROPHILS ABSOLUTE AUTO 5.03 K/mm3 (1.96-9.15); NEUTROPHILS PERCENT AUTO 55 % (41-73); NRBC ABSOLUTE 0.02 K/mm3 (0.00-0.02); NRBC Auto 0.2 /100 WBC (0.0-0.2); Platelet Count 767 K/mm3 (150-400); RDW Coefficient Variation 15.1 % (11.7-14.2); RDW Standard Deviation 45.5 fL (35.1-46.3)
[2025-01-19 05:08] VITALS: BP 136/93
[2025-01-19 05:23] LABS: Anion Gap 8.0 mmol/L (3-11); Blood Urea Nitrogen 16.0 mg/dL (8-24); CO2, Blood 26.0 mmol/L (21-32); Calcium, Blood 8.9 mg/dL (8.5-10.1); Chloride, Blood 103.0 mmol/L (98-108); Creatinine, Blood 0.5 mg/dL (0.60-1.20); Glucose, Blood 104.0 mg/dL (70-99); Potassium, Blood 4.0 mmol/L (3.5-5.5); Sodium, Blood 133.0 mmol/L (136-145)
--- NOTE | 2025-01-19 05:23 | NUR ---
SHIFT SUMMARY A&OX4. ABLE TO MAKE NEEDS KNOWN. PLEASANT WITH CARE. RIGHT ABD DRESSING DISLODGED. THIS RN REPLACED THAT DRESSING. ABX GIVEN PER EMAR. PT RESTED THROUGHOUT THE NIGHT. SUPRAPUBIC CATHETER PATENT AND DRAINING LIGHT YELLOW URINE TO GRAVITY. PT RECEIVED A CHG BATH AND CATH CARE PERFORMED. PT CURRENTLY RESTING IN BED AT LOWEST POSTION WITH CALL LIGHT WITHIN REACH.
[2025-01-19 07:56] VITALS: BP 136/76
[2025-01-19 15:09] VITALS: BP 109/90
--- NOTE | 2025-01-19 16:29 | NUR ---
SHIFT SUMMARY: NO EVENTS OR CHANGES WITH THE PATIENT THROUGHOUT THE SHIFT. HE CALLS APPROPRIATELY. HE EXPRESSES INPATIENCE WHILE HE WAITS FOR A BED AT [facility]. HE IS PLEASANT AND COOPERATIVE WITH CARE. IN BED, ALERT, CALL LIGHT WITHIN REACH, NO SIGNS OR SYMPTOMS OF DISTRESS, PLAN OF CARE ONGOING.
[2025-01-19 19:51] VITALS: BP 136/87
--- NOTE | 2025-01-20 00:35 | NUR ---
[facility] TRANSFER CALLED TO CHECK ON PT STATUS. STILL NO BED AVAILABLE BUT THEY STATE THEY WILL CALL DAILY TO CHECK IN ON PT.
--- NOTE | 2025-01-20 04:17 | NUR ---
SHIFT SUMMARY A&OX4. ABLE TO MAKE ALL NEEDS KNOWN. PT ASSISTED WITH TRANSFER UP TO THE RESTROOM. BRUSHED HIS HAIR WHICH PT VOICED APPRECIATION FOR. WOUND DRESSINGS DISLODGED WITH TRANSFER AND WOUNDS CLEANSED AND DRESSINGS REPLACED. SUPRAPUBIC CATHETER REMAINS PATENT AND DRAINING LIGHT YELLOW URINE. PT APPEARED MORE UPBEAT THIS EVENING AND MORE TALKATIVE. [facility] CALLED FOR PT UPDATE AND TO VOCALIZE THEY STILL DO NOT HAVE A BED BUT PT IS ON LIST. CURRENTLY PT IS SLEEPING IN BED AT LOWEST POSITION WITH CALL LIGHT WITHIN REACH.
[2025-01-20 07:30] VITALS: BP 114/69
[2025-01-20] MEDS ORDERED: Polyethylene Glycol 3350 17 gm PO PRN (09:00)
[2025-01-20 15:57] VITALS: BP 133/91
[2025-01-20 17:03] VITALS: BP 133/91
--- NOTE | 2025-01-20 18:17 | NUR ---
REPORT CALLED TO DEAN STONE AT [facility] ON 01/20/25 AT 1818. PATIENT BELONGINGS PACKED AND READY TO GO. WILL CONTINUE TO MONITOR
== END 2025-01-20 19:20 | disposition short-term general hospital (02) | DRG 872 ==
LOC: ER 12:57 → PCU 19:34 → MEDS 19:34 → PCU 23:37 → MEDS 01-17 16:20
PROVIDERS: Internal Medicine; Nurse Practitioner Acute Care; Orthopaedic Surgery; Physician Assistant; Registered Nurse; Student in an Organized Health Care Education/Training Program; ADMIT Student in an Organized Health Care Education/Training Program
PROC: 3E03329 Introduction of Other Anti-infective into Peripheral Vein, Percutaneous Approach (ICD-10-PCS; 2025-01-12)
PROC: 3E02340 Introduction of Influenza Vaccine into Muscle, Percutaneous Approach (ICD-10-PCS; 2025-01-12)
PROC: 0S9B3ZZ Drainage of Left Hip Joint, Percutaneous Approach (ICD-10-PCS; principal; 2025-01-13)
PROC: 0T2BX0Z Change Drainage Device in Bladder, External Approach (ICD-10-PCS; 2025-01-13)
PROC: 05HY33Z Insertion of Infusion Device into Upper Vein, Percutaneous Approach (ICD-10-PCS; 2025-01-16)
DX: A41.1 Sepsis due to other specified staphylococcus (principal); L03.116 Cellulitis of left lower limb; G82.20 Paraplegia, unspecified; L03.115 Cellulitis of right lower limb; M86.8X8 Other osteomyelitis, other site; M00.9 Pyogenic arthritis, unspecified; E87.1 Hypo-osmolality and hyponatremia; I82.492 Acute embolism and thrombosis of other specified deep vein of left lower extremity; L89.159 Pressure ulcer of sacral region, unspecified stage; L89.899 Pressure ulcer of other site, unspecified stage; R05.3 Chronic cough; E87.6 Hypokalemia; D64.9 Anemia, unspecified; L89.621 Pressure ulcer of left heel, stage 1; L89.149 Pressure ulcer of left lower back, unspecified stage; M25.452 Effusion, left hip; M16.12 Unilateral primary osteoarthritis, left hip; Z96.0 Presence of urogenital implants; R59.0 Localized enlarged lymph nodes; Z88.5 Allergy status to narcotic agent; Z88.8 Allergy status to other drugs, medicaments and biological substances; Z88.0 Allergy status to penicillin; Z79.899 Other long term (current) drug therapy; Z79.01 Long term (current) use of anticoagulants; Z98.1 Arthrodesis status; Z86.19 Personal history of other infectious and parasitic diseases; Z87.440 Personal history of urinary (tract) infections
CPT/HCPCS: 20611; 36415; 36569; 71045; 72193; 80048; 80053; 80202; 81001; 83605; 83735; 84100; 84145; 85025; 85520; 85610; 85651; 85730; 86140; 87040; 87070; 87075; 87077; 87086; 87205; 89051; 96365-59; 96375-59; 99285-25; A9270; C1751; J0690; J1644; J1650; J2185; J2405; J2765; J3010; J3373; J7030; J7040; J7050; J7120; Q9967

== ENCOUNTER → 2025-02-04 | Outpatient (CLI) | payer OTHER ==
[~2025-02-04] MED LIST changes: +AMOX-CLAV ER 11 EAC1 PO; +FLUT.05NI; +METHENAM HIP PO; +TOLTERODINE TART4 MG PO
[2025-02-04 17:49] LABS: BASOPHILS ABSOLUTE AUTO 0.08 K/mm3 (0.00-0.23); BASOPHILS PERCENT AUTO 1 % (0-2); EOSINOPHILS ABSOLUTE AUTO 0.22 K/mm3 (0.00-0.68); EOSINOPHILS PERCENT AUTO 3 % (0-6); Hematocrit 27.1 % (37.0-53.0); Hemoglobin 8.1 g/dL (13.5-17.5); IMMATURE GRAN ABSOLUTE AUTO 0.04 K/mm3 (0.00-0.10); IMMATURE GRAN PERCENT AUTO 1 % (0-1); LYMPHOCYTES ABSOLUTE AUTO 2.67 K/mm3 (0.84-5.20); LYMPHOCYTES PERCENT AUTO 31 % (21-46); MONOCYTES ABSOLUTE AUTO 1.03 K/mm3 (0.16-1.47); MONOCYTES PERCENT AUTO 12 % (4-13); Mean Corpuscular HGB Conc 29.9 g/dL (31.5-36.5); Mean Corpuscular Volume 79 fL (80-100); NEUTROPHILS ABSOLUTE AUTO 4.69 K/mm3 (1.96-9.15); NEUTROPHILS PERCENT AUTO 54 % (41-73); NRBC ABSOLUTE 0.00 K/mm3 (0.00-0.02); NRBC Auto 0.0 /100 WBC (0.0-0.2); Platelet Count 612 K/mm3 (150-400); RDW Coefficient Variation 14.5 % (11.7-14.2); RDW Standard Deviation 41.6 fL (35.1-46.3)
[2025-02-04 18:02] LABS: Alanine Aminotransfer (ALT/SGP 14.0 U/L (12-78); Albumin, Blood 2.8 g/dL (3.4-5.0); Albumin/Globulin Ratio 0.4 (0.8-1.8); Anion Gap 8.0 mmol/L (3-11); Aspartate Aminotrans (AST/SGOT 21.0 U/L (12-37); Bilirubin, Total 0.2 mg/dL (0.1-1.0); Blood Urea Nitrogen 17.0 mg/dL (8-24); CO2, Blood 28.0 mmol/L (21-32); Calcium, Blood 9.2 mg/dL (8.5-10.1); Chloride, Blood 103.0 mmol/L (98-108); Creatinine, Blood 0.65 mg/dL (0.60-1.20); Globulin, Blood 6.4 g/dL (2.2-4.0); Glucose, Blood 111.0 mg/dL (70-99); Potassium, Blood 3.6 mmol/L (3.5-5.5); Sodium, Blood 135.0 mmol/L (136-145); Total Protein, Blood 9.2 g/dL (6.4-8.2)
== END ==
LOC: LAB 14:20 → LAB SHORT 14:20
DX: A41.01 Sepsis due to Methicillin susceptible Staphylococcus aureus (principal); L89.523 Pressure ulcer of left ankle, stage 3
CPT/HCPCS: 80053; 85025

== ENCOUNTER → 2025-04-05 | Outpatient (CLI) | payer OTHER ==
[2025-04-05 16:12] LABS: Source, Urine Condom Cath
[2025-04-05 16:15] LABS: Hematocrit 32.7 % (37.0-53.0); Hemoglobin 9.3 g/dL (13.5-17.5); Mean Corpuscular HGB Conc 28.4 g/dL (31.5-36.5); Mean Corpuscular Volume 72 fL (80-100); NRBC ABSOLUTE 0.00 K/mm3 (0.00-0.02); NRBC Auto 0.0 /100 WBC (0.0-0.2); Platelet Count 559 K/mm3 (150-400); RDW Coefficient Variation 15.0 % (11.7-14.2); RDW Standard Deviation 38.5 fL (35.1-46.3)
[2025-04-05 16:17] LABS: Color, Urine Brown (P-Yellow); Glucose Qualitative, Urine Neg (Neg); Ketones, Urine 1+ (Neg); Leukocyte Esterase, Urine 3+ (Neg); Protein, Urine 4+ (Neg); Specific Gravity, Urine 1.025 (1.003-1.022); Urobilinogen, Urine 1+ (Normal)
[2025-04-05 16:21] LABS: Bilirubin, Urine 1+ (Neg)
[2025-04-05 16:27] LABS: Red Blood Cells, Urine TNTC /hpf (0-2)
== END ==
LOC: LAB 15:47 → LAB SHORT 15:47
PROVIDERS: Family Medicine
DX: Z87.440 Personal history of urinary (tract) infections (principal)
CPT/HCPCS: 81001; 85027; 87077; 87086; 87186